=== PATIENT | female | born 1955 | race Caucasian/White ===

== ENCOUNTER 2020-04-08 10:47 | Outpatient (REF) | payer OTHER, SELFPAY ==
--- NOTE | 2020-04-08 | MM_ITS ---
EXAMINATION: BONE DENSITOMETRY CLINICAL INDICATION: Osteoporosis. COMPARISON: Previous BD dated 05/20/2017 and baseline BD dated 10/20/2013. TECHNIQUE: Using a [employer] DXA System (software version: 13.1) manufactured by [employer], dual-energy x-ray absorptiometry was performed of the lumbar spine and left hip. The images are of good technical quality. Summary results are attached. FINDINGS: AP SPINE L1-L4: Current: BMD 0.801 g/cm2, Z-score -1.8, T-score -3.2, osteoporosis, 3.8% decrease from previous, 6.3% decrease from baseline (<5% change is not significant). Prior: BMD 0.833 g/cm2. Baseline: BMD 0.855 g/cm2. LEFT FEMUR, NECK: Current: BMD 0.601 g/cm2, Z-score -1.8, T-score -3.1, osteoporosis. Prior: BMD 0.671 g/cm2. Baseline: BMD 0.736 g/cm2. LEFT FEMUR, TOTAL: Current: BMD 0.611 g/cm2, Z-score -2.1, T-score -3.2, osteoporosis, 9.9% decrease from previous, 15.4% decrease from baseline (<5% change is not significant). Prior: BMD 0.678 g/cm2. Baseline: BMD 0.722 g/cm2. IDENTIFIED RISK FACTORS: Early menopause, history of fracture (adult), osteoporosis, tobacco use (current smoker), secondary osteoporosis. HISTORY OF FRACTURE: Other fracture. MEDICATIONS: Calcium or multivitamin. Vitamin D. IMPRESSION: 1. DIAGNOSIS: Osteoporosis based on the lowest T-score value of -3.2 in the spine and total femur applying World Health Organization criteria. 2. 10-YEAR FRACTURE RISK PREDICTION, FRAX: Major osteoporotic fracture (clinical spine, forearm, hip or shoulder) 31.3%. Hip fracture 14.7%. 3. Treatment Recommendations: NOF guidelines recommend consideration for treatment in postmenopausal women and men age 50 and older presenting with the following: -A hip or vertebral (clinical or morphometric) fracture. -T-score less than or equal to -2.5 at the femoral neck or spine after appropriate evaluation to exclude secondary causes. -Low bone mass at the hip or spine and a 10-year fracture probability by FRAX of greater than or equal to 3% for hip fracture or greater than or equal to 20% for major osteoporotic fracture based on the [place] adapted WHO algorithm. 4. Other Recommendations: All treatment decisions require clinical judgment and consideration of individual patient factors, including patient preferences, comorbidities, previous drug use, risk factors not captured in the FRAX model (e.g. frailty, falls, vitamin D deficiency, increased bone turnover, interval significant decline in bone density) and possible under or overestimation of fracture risk by FRAX. Additional medical evaluation for secondary cause of low bone mineral density may be appropriate. FUTURE SCAN RECOMMENDATION: People with diagnosed cases of osteoporosis or at high risk for fracture should have regular bone mineral density tests. For patients eligible for Medicare, routine testing is allowed once every 2 years. The testing frequency can be increased to one year for patients who have rapidly progressing disease, those who are receiving or discontinuing medical therapy to restore bone mass, or have additional risk factors.
== END 2020-04-08 10:48 | disposition home or self-care (01) ==
LOC: HO.MAMMO 10:47
PROVIDERS: PCP Internal Medicine; Visit Provider Internal Medicine
DX: M81.0 Age-related osteoporosis without current pathological fracture (principal); E28.319 Asymptomatic premature menopause; F17.200 Nicotine dependence, unspecified, uncomplicated
CPT/HCPCS: 77080

== ENCOUNTER 2020-04-11 08:09 | Outpatient (REF) | payer OTHER, SELFPAY ==
[2020-04-11 09:05] LABS: MANUAL DIFF FLAG NO
[2020-04-11 09:08] LABS: Basophils Absolute Auto 0.1 X10*3/uL (0.0-0.2); Basophils Percent Auto 0.9 % (0-2); Eosinophils Absolute Auto 0.6 X10*3/uL (0.0-0.4); Eosinophils Percent Auto 5.9 % (0-4); Hematocrit 39.1 % (37-47); Hemoglobin 13.4 g/dl (12.0-16.0); Imm Gran Abs Auto 0.04 X10*3/uL (0.00-0.03); Imm Gran Pct Auto 0.4 % (0.0-0.4); Lymphocytes Absolute Auto 4.3 X10*3/uL (1.2-4.9); Lymphocytes Percent Auto 41.6 % (20-40); Mean Corpuscular HGB Conc 34.3 g/dl (31.0-35.0); Mean Corpuscular Hemoglobin 30.6 pg (27.0-33.0); Mean Corpuscular Volume 89.3 fL (80-98); Mean Platelet Volume 8.8 fL (9.4-12.3); Monocytes Absolute Auto 0.8 X10*3/uL (0.1-1.2); Monocytes Percent Auto 8.2 % (2-11); Neutrophils Absolute Auto 4.4 X10*3/uL (2.0-8.3); Platelet Count 359 X10*3/uL (160-400); Red Blood Count 4.38 X10*6/uL (4.20-5.50); Red Cell Distribution Width 12.8 % (11.0-16.0); White Blood Count 10.3 X10*3/uL (4.8-10.8)
[2020-04-11 09:39] LABS: Alanine Aminotransferase 9 U/L (0-31); Albumin Level 4.1 g/dL (3.5-5.0); Alkaline Phosphatase 70 U/L (39-117); Anion Gap 13 (12-20); Aspartate Amino Transferase 12 U/L (5-31); Bilirubin Total 0.3 mg/dL (0.0-1.0); Blood Urea Nitrogen 9 mg/dL (9-16); Calcium 9.5 mg/dL (8.4-10.2); Carbon Dioxide 27 mmol/L (22-29); Chloride 102 mmol/L (96-108); Cholesterol 229 mg/dL; Estimated Glomerular Filt Rate > 60; Glucose Fasting 103 mg/dL (60-99); HDL Cholesterol 59 mg/dL; LDL Cholesterol Calculated 144 mg/dl; Potassium 4.7 mmol/l (3.3-5.1); Sodium 137 mmol/L (135-145); Total Protein 6.5 g/dL (6.5-8.0); Triglycerides 134 mg/dL
[2020-04-11 10:25] LABS: T4 Thyroxine 5.2 ug/dL (4.5-12.0); Thyroid Stimulating Hormone 2.07 mIU/mL (0.32-4.0); Vitamin D 25-OH Total 46.5 ng/mL (>30)
[2020-04-12 19:51] LABS: Folate 7.1 ng/mL (> or = 4.0); Vitamin B12 323 pg/mL (200-900)
== END 2020-04-11 08:10 | disposition home or self-care (01) ==
LOC: HO.LAB 08:09
PROVIDERS: PCP Internal Medicine; Visit Provider Internal Medicine
DX: F41.8 Other specified anxiety disorders (principal); M81.0 Age-related osteoporosis without current pathological fracture; Z72.0 Tobacco use
CPT/HCPCS: 36415; 80053; 80061; 82306; 82607; 82746; 84436; 84443; 85025

== ENCOUNTER 2020-11-18 09:26 | Outpatient (REF) | payer OTHER, SELFPAY ==
--- NOTE | ~2020-11-18 | US_ITS ---
EXAMINATION: US ABDOMEN LIMITED CLINICAL INFORMATION: Abnormal LFTs. COMPARISON: None TECHNIQUE: Real-time imaging of the right upper quadrant abdominal viscera. FINDINGS: PANCREAS: The pancreas is partially obscured by overlying gas. LIVER: Normal. The liver is normal in size. The liver contour is normal. Parenchymal echogenicity is normal. No focal hepatic lesion. There is no intrahepatic biliary duct dilatation seen. GALLBLADDER: Normal. The gallbladder is physiologically distended without evidence of stones, sludge, polyps, wall thickening, or pericholecystic fluid. COMMON BILE DUCT: Normal in caliber measuring 0.3 cm in diameter. RIGHT KIDNEY: Normal. No hydronephrosis. No renal calculi or focal parenchymal lesions. The kidney measures 9.9 cm in maximum dimension. FREE FLUID: None. US/US abdomen limited IMPRESSION: Unremarkable limited abdomen ultrasound. The pancreas is obscured by overlying gas.
== END 2020-11-18 09:27 | disposition home or self-care (01) ==
LOC: HO.US 09:26
PROVIDERS: Visit Provider Internal Medicine
DX: R79.89 Other specified abnormal findings of blood chemistry (principal); Z86.19 Personal history of other infectious and parasitic diseases
CPT/HCPCS: 76705

== ENCOUNTER 2020-12-04 12:40 | Outpatient (REF) | payer OTHER, SELFPAY ==
--- NOTE | ~2020-12-04 | MM_ITS ---
EXAMINATION: MM SCREENING DIGITAL BREAST TOMOSYNTHESIS, BILATERAL CLINICAL INFORMATION: Screening. Asymptomatic. The lifetime risk of breast cancer based on the Tyrer-Cuzick Model is 5%. COMPARISON: Mammography: 09/04/2019, 08/17/2018, 08/04/2018, 05/20/2017 TECHNIQUE: Digital breast tomosynthesis is performed in both the craniocaudal and mediolateral oblique views along with computer-aided detection (CAD). Synthesized 2D images are generated from the tomosynthesis. FINDINGS: The breasts are heterogeneously dense, which may obscure small masses (ACR BI-RADS breast composition Category c). There is a fibronodular parenchymal pattern similar to prior studies. There is no interval mass or architectural abnormality or abnormal calcifications. Small nodular density 12:00 right breast is stable and consistent with dermal lesion as confirmed with skin marker on exam 08/17/2018. The axilla are unremarkable. There are no significant changes. MM/MM tomosynthesis screening BI IMPRESSION: No mammographic evidence of malignancy. ASSESSMENT: BI-RADS 2: Benign RECOMMENDATION: Routine annual mammography screening. This patient's information was entered into a reminder system with a target due date for their next mammogram.
== END 2020-12-04 12:41 | disposition home or self-care (01) ==
LOC: HO.MAMMO 12:40
PROVIDERS: Visit Provider Internal Medicine
DX: Z12.31 Encounter for screening mammogram for malignant neoplasm of breast (principal)
CPT/HCPCS: 77063; 77067

== ENCOUNTER 2020-12-23 10:50 | Outpatient (REF) | payer OTHER, SELFPAY ==
--- NOTE | ~2020-12-23 | CT_ITS ---
EXAMINATION: CT CHEST SCREENING CLINICAL INFORMATION: Nicotine dependence. COMPARISON: None. TECHNIQUE: Multidetector volumetric CT imaging of the chest is performed without contrast using low dose technique. Additional 2D coronal and sagittal reformatted images and axial 3D maximum intensity projection (MIP) images are generated on the CT workstation. This CT examination was performed using dose optimization techniques as appropriate, variously including the following: *Automated exposure control *Adjustment of mA and/or kV according to patient size (this includes techniques or standardized protocols for targeted exams where dose is matched to indication/reason for exam; i.e. extremities or head) *Use of iterative reconstruction technique DLP: 45 mGy-cm. FINDINGS: LUNGS: The lungs are well expanded and clear of acute pneumonic process. There is a 3 mm nodule right lower lobe image 247/6. There is mild focal thickening right minor fissure axial image 248/6, likely secondary to a prominent vascular structure better visualized on sagittal reconstructed images 85/8. There is a 4 mm subpleural nodule right lower lobe axial image 316/6 and a 6 mm nodule left lower lobe lateral basal segment image 390/6. There is no additional pulmonary nodule, mass or ground-glass density. MEDIASTINUM: The heart size is normal. The great vessels are normal caliber. There are coronary artery calcifications present. No pericardial effusion seen. Central trachea and the bronchi appear widely patent except for stranding in the trachea, axial image 16/4. There are small shotty lymph nodes in the mediastinum. Thyroid lobes are symmetrical and normal. PLEURA: There is no pleural effusion. No pleural mass or thickening. AXILLA: There is a 1.2 cm left axillary lymph node. The chest wall appears unremarkable. UPPER ABDOMEN: Visualized liver, spleen, pancreas and bilateral adrenal glands are unremarkable. OSSEOUS STRUCTURES: No lytic or sclerotic process seen. CT/CT lung screening IMPRESSION: 6 mm and less pulmonary nodules as described above ASSESSMENT: Lung-RADS category 2: Benign. RECOMMENDATION: Low-dose annual CT chest.
== END 2020-12-23 10:51 | disposition home or self-care (01) ==
LOC: HO.CT 10:50
PROVIDERS: PCP Internal Medicine; Visit Provider Physician Assistant Medical
DX: Z12.2 Encounter for screening for malignant neoplasm of respiratory organs (principal); Z87.891 Personal history of nicotine dependence
CPT/HCPCS: 71271

== ENCOUNTER 2021-04-11 08:21 | Outpatient (REF) | payer OTHER, SELFPAY ==
[2021-04-11 10:12] LABS: MANUAL DIFF FLAG NO
[2021-04-11 10:18] LABS: Basophils Absolute Auto 0.1 X10*3/uL (0.0-0.2); Basophils Percent Auto 1.5 % (0-2); Eosinophils Absolute Auto 0.4 X10*3/uL (0.0-0.4); Eosinophils Percent Auto 4.6 % (0-4); Hematocrit 41.8 % (37-47); Hemoglobin 14.5 g/dl (12.0-16.0); Imm Gran Abs Auto 0.02 X10*3/uL (0.00-0.03); Imm Gran Pct Auto 0.2 % (0.0-0.4); Lymphocytes Absolute Auto 3.9 X10*3/uL (1.2-4.9); Mean Corpuscular HGB Conc 34.7 g/dl (31.0-35.0); Mean Corpuscular Hemoglobin 30.5 pg (27.0-33.0); Mean Corpuscular Volume 87.8 fL (80-98); Mean Platelet Volume 9.4 fL (9.4-12.3); Monocytes Absolute Auto 0.7 X10*3/uL (0.1-1.2); Monocytes Percent Auto 8.6 % (2-11); Neutrophils Absolute Auto 3.2 X10*3/uL (2.0-8.3); Neutrophils Percent Auto 38.1 % (45-73); Platelet Count 301 X10*3/uL (160-400); Red Blood Count 4.76 X10*6/uL (4.20-5.50); Red Cell Distribution Width 12.3 % (11.0-16.0); White Blood Count 8.3 X10*3/uL (4.8-10.8)
[2021-04-11 10:36] LABS: Alanine Aminotransferase 8 U/L (0-31); Albumin Level 4.2 g/dL (3.5-5.0); Alkaline Phosphatase 86 U/L (39-117); Anion Gap 12 (12-20); Aspartate Amino Transferase 15 U/L (5-31); Bilirubin Total 0.5 mg/dL (0.0-1.0); Blood Urea Nitrogen 15 mg/dL (9-16); Calcium 9.8 mg/dL (8.4-10.2); Carbon Dioxide 27 mmol/L (22-29); Chloride 101 mmol/L (96-108); Cholesterol 272 mg/dL; Estimated Glomerular Filt Rate 56; Glucose Random 101 mg/dL (60-115); HDL Cholesterol 68 mg/dL; LDL Cholesterol Calculated 184 mg/dl; Potassium 4.5 mmol/L (3.3-5.1); Sodium 135 mmol/L (135-145); Triglycerides 101 mg/dL
[2021-04-11 10:38] LABS: Estimated Average Glucose 105 mg/dL; Hemoglobin A1c % 5.3 %
[2021-04-11 10:59] LABS: Free T4 (Free Thyroxine) 0.85 ng/dL (0.71-1.85); Thyroid Stimulating Hormone 2.46 uIU/mL (0.32-4.0); Vitamin D 25-OH Total 42.1 ng/mL (>30)
[2021-04-11 11:14] LABS: Folate 8.8 ng/mL (> or = 4.0); Vitamin B12 293 pg/mL (200-900)
== END 2021-04-11 08:22 | disposition home or self-care (01) ==
LOC: HO.10HDL 08:21
PROVIDERS: Visit Provider Internal Medicine
DX: R73.02 Impaired glucose tolerance (oral) (principal); E78.00 Pure hypercholesterolemia, unspecified; M81.0 Age-related osteoporosis without current pathological fracture; Z86.19 Personal history of other infectious and parasitic diseases
CPT/HCPCS: 36415; 80053; 80061; 82306; 82378; 82607; 82746; 83036; 84439; 84443; 85025

== ENCOUNTER 2021-12-08 08:47 | Outpatient (REF) | payer OTHER, SELFPAY ==
--- NOTE | ~2021-12-08 | MM_ITS ---
EXAMINATION: MM SCREENING DIGITAL BREAST TOMOSYNTHESIS, BILATERAL CLINICAL INFORMATION: Screening. Asymptomatic. The lifetime risk of breast cancer based on the Tyrer-Cuzick Model is 5.2%. COMPARISON: Mammography: December 04, 2020 and studies dating back to October 20, 2013 TECHNIQUE: Digital breast tomosynthesis is performed in both the craniocaudal and mediolateral oblique views along with computer-aided detection (CAD). Synthesized 2D images are generated from the tomosynthesis. FINDINGS: The breasts are heterogeneously dense, which may obscure small masses (ACR BI-RADS breast composition Category c). There are no significant masses, abnormal calcifications, or other abnormalities. MM/MM tomosynthesis screening BI IMPRESSION: There are no significant changes from prior study. ASSESSMENT: BI-RADS 1: Negative RECOMMENDATION: Routine annual mammography screening. This patient's information was entered into a reminder system with a target due date for their next mammogram.
--- NOTE | ~2021-12-08 | XR_ITS ---
EXAMINATION: BILATERAL ANKLE X-RAY CLINICAL INFORMATION: Pain COMPARISON: None TECHNIQUE: 3 views of each ankle FINDINGS: Bone alignment is normal. No fracture or dislocation is seen. The ankle mortise is normal. Soft tissues are normal. XR/XR ankle RT 2V IMPRESSION: Normal bilateral ankles.
--- NOTE | ~2021-12-08 | XR_ITS ---
EXAMINATION: BILATERAL ANKLE X-RAY CLINICAL INFORMATION: Pain COMPARISON: None TECHNIQUE: 3 views of each ankle FINDINGS: Bone alignment is normal. No fracture or dislocation is seen. The ankle mortise is normal. Soft tissues are normal. XR/XR ankle LT 2V IMPRESSION: Normal bilateral ankles.
[2021-12-08 10:32] LABS: MANUAL DIFF FLAG NO
[2021-12-08 10:36] LABS: Basophils Absolute Auto 0.1 X10*3/uL (0.0-0.2); Basophils Percent Auto 0.7 % (0-2); Eosinophils Absolute Auto 0.5 X10*3/uL (0.0-0.4); Eosinophils Percent Auto 4.6 % (0-4); Hematocrit 40.6 % (37.0-47.0); Hemoglobin 13.9 g/dl (12.0-16.0); Imm Gran Abs Auto 0.03 X10*3/uL (0.00-0.03); Imm Gran Pct Auto 0.3 % (0.0-0.4); Lymphocytes Absolute Auto 2.7 X10*3/uL (1.2-4.9); Lymphocytes Percent Auto 27.3 % (20-40); Mean Corpuscular HGB Conc 34.2 g/dl (31.0-35.0); Mean Corpuscular Hemoglobin 30.9 pg (27.0-33.0); Mean Corpuscular Volume 90.2 fL (80.0-98.0); Mean Platelet Volume 9.5 fL (9.4-12.3); Monocytes Absolute Auto 0.9 X10*3/uL (0.1-1.2); Monocytes Percent Auto 9.1 % (2-11); Neutrophils Absolute Auto 5.7 x10*3/uL (2.0-8.3); Platelet Count 341 X10*3/uL (160-400); Red Cell Distribution Width 12.8 % (11.0-16.0); White Blood Count 9.8 X10*3/uL (4.8-10.8)
[2021-12-08 10:51] LABS: Cholesterol 206 mg/dL; HDL Cholesterol 66 mg/dL; LDL Cholesterol Calculated 118 mg/dl; Triglycerides 113 mg/dL
[2021-12-08 10:56] LABS: Estimated Average Glucose 108 mg/dL; Hemoglobin A1c % 5.4 %
== END 2021-12-08 08:48 | disposition home or self-care (01) ==
LOC: HO.MAMMO 08:47
PROVIDERS: PCP Internal Medicine; Visit Provider Internal Medicine
DX: Z12.31 Encounter for screening mammogram for malignant neoplasm of breast (principal); E78.00 Pure hypercholesterolemia, unspecified; R73.02 Impaired glucose tolerance (oral); M25.572 Pain in left ankle and joints of left foot; M25.571 Pain in right ankle and joints of right foot
CPT/HCPCS: 36415; 73600; 77063; 77067; 80061; 83036; 85025

== ENCOUNTER 2022-03-12 10:49 | Outpatient (REF) | payer OTHER, SELFPAY ==
--- NOTE | 2022-03-12 13:21 | PFT_ITS ---
FLOWS: FEV1 83% of predicted at 2.08 L. FVC 99% predicted at 3.5 L. FEV1 to FVC ratio of 0.64. No bronchodilator response. LUNG VOLUMES: Total lung capacity 103% of predicted at 5.39 L. Residual volume 101% of predicted at 2.17 L. Slow vital capacity 105% of predicted at 3.22 L. Expiratory reserve volume 101% of predicted at 0.83 L. Diffusion capacity is moderately decreased. IMPRESSION: Mild obstructive ventilatory defect. No bronchodilator response. Decreased diffusion capacity suggests emphysema. Oseas Núñez MD AP/MODL / [id number]
== END 2022-03-12 10:50 | disposition home or self-care (01) ==
LOC: HO.RESP 10:49
PROVIDERS: PCP Internal Medicine; Visit Provider Internal Medicine
DX: R06.02 Shortness of breath (principal)
CPT/HCPCS: 94060; 94727; 94729

== ENCOUNTER 2022-08-17 08:27 | Outpatient (REF) | payer MEDICARE, MEDICAID, SELFPAY ==
--- NOTE | ~2022-08-17 | CT_ITS ---
EXAMINATION: CT CHEST SCREENING CLINICAL INFORMATION: 40 pack year history. Current smoker. COMPARISON: Previous chest CT December 2020 TECHNIQUE: Multidetector volumetric CT imaging of the chest is performed without contrast using low dose technique. Additional 2D coronal and sagittal reformatted images and axial 3D maximum intensity projection (MIP) images are generated on the CT workstation. This CT examination was performed using dose optimization techniques as appropriate, variously including the following: *Automated exposure control *Adjustment of mA and/or kV according to patient size (this includes techniques or standardized protocols for targeted exams where dose is matched to indication/reason for exam; i.e. extremities or head) *Use of iterative reconstruction technique DLP: 49 mGy-cm FINDINGS: LUNGS: There is evidence of emphysema. There are small stable bilateral pulmonary nodules. Largest pulmonary nodules measure 6 mm in the peripheral or subpleural right lower lobe axial image 339 and 7 mm in the peripheral or subpleural left lower lobe axial image 364 series 5. No new pulmonary nodule. No endobronchial or endotracheal lesion. MEDIASTINUM: Small left thyroid nodule. No imaging follow-up is indicated. Similar to previous exam. Mediastinum is otherwise normal. CORONARY ARTERY CALCIFICATION: Mild PLEURA: There is no pleural effusion. No pleural mass or thickening. AXILLA: No lymphadenopathy. UPPER ABDOMEN: Unremarkable OSSEOUS STRUCTURES: Mild degenerative changes of the spine. CT/CT lung screening IMPRESSION: Mild emphysema. Stable small bilateral pulmonary nodules. Mild coronary artery calcification. ASSESSMENT: Lung-RADS category 2: Benign RECOMMENDATION: Annual low-dose chest CT follow-up in one year recommended.
== END 2022-08-17 08:28 | disposition home or self-care (01) ==
LOC: HO.CT 08:27
PROVIDERS: PCP Internal Medicine; Visit Provider Physician Assistant Medical
DX: Z12.2 Encounter for screening for malignant neoplasm of respiratory organs (principal); F17.210 Nicotine dependence, cigarettes, uncomplicated
CPT/HCPCS: 71271

== ENCOUNTER 2022-10-07 12:25 | Outpatient (REF) | payer MEDICARE, MEDICAID, SELFPAY ==
[2022-10-08 03:17] LABS: CT PCR NOT DETECTED (Not Detect.); NG PCR NOT DETECTED (Not Detect.)
[2022-10-08 10:01] LABS: BV Int Neg Control Negative (Negative); BV Int Pos Control Positive (Positive)
== END 2022-10-07 12:26 | disposition home or self-care (01) ==
LOC: HO.LAB 12:25
PROVIDERS: Visit Provider Internal Medicine
DX: Z12.4 Encounter for screening for malignant neoplasm of cervix (principal); Z11.51 Encounter for screening for human papillomavirus (HPV); Z20.2 Contact with and (suspected) exposure to infections with a predominantly sexual mode of transmission
CPT/HCPCS: 0353U; 87480; 87510; 87624; 87660; 88142

== ENCOUNTER 2022-10-07 12:25 | Outpatient (REF) | payer MEDICARE, MEDICAID, SELFPAY ==
[2022-10-10 08:54] LABS: HPV mRNA E6/E7 rflx Not Detected (Not Detected)
== END 2022-10-07 12:26 | disposition home or self-care (01) ==
LOC: HO.LNP 12:25
PROVIDERS: Visit Provider Internal Medicine
DX: Z13.89 Encounter for screening for other disorder (principal)
CPT/HCPCS: 87624; 88142

== ENCOUNTER 2022-12-29 10:41 | Outpatient (REF) | payer MEDICARE, MEDICAID, SELFPAY ==
--- NOTE | ~2022-12-29 | MM_ITS ---
EXAMINATION: MM SCREENING DIGITAL BREAST TOMOSYNTHESIS, BILATERAL CLINICAL INFORMATION: Screening. Asymptomatic. The lifetime risk of breast cancer based on the Tyrer-Cuzick Model is 5%. COMPARISON: Prior mammography exams including most recent 12/08/2021. TECHNIQUE: Digital breast tomosynthesis is performed in both the craniocaudal and mediolateral oblique views along with computer-aided detection (CAD). Synthesized 2D images are generated from the tomosynthesis. FINDINGS: The breasts are heterogeneously dense, which may obscure small masses (ACR BI-RADS breast composition Category c). There are no significant masses, abnormal calcifications, or other abnormalities. Parenchymal pattern is similar to prior studies. There is no developing density or architectural abnormality. The axilla and skin contours are unremarkable. No significant changes. MM/MM tomosynthesis screening BI IMPRESSION: No mammographic evidence of malignancy. ASSESSMENT: BI-RADS 1: Negative RECOMMENDATION: Routine annual mammography screening. This patient's information was entered into a reminder system with a target due date for their next mammogram.
== END 2022-12-29 10:42 | disposition home or self-care (01) ==
LOC: HO.MAMMO 10:41
PROVIDERS: PCP Internal Medicine; Visit Provider Internal Medicine
DX: Z12.31 Encounter for screening mammogram for malignant neoplasm of breast (principal)
CPT/HCPCS: 77063; 77067

== ENCOUNTER 2023-02-25 08:29 | Outpatient (REF) | payer MEDICARE, MEDICAID, SELFPAY ==
[2023-02-25 10:43] LABS: Basophils Absolute Auto 0.1 X10*3/uL (0.0-0.2); Basophils Percent Auto 0.9 % (0-2); Eosinophils Absolute Auto 0.4 X10*3/uL (0.0-0.4); Eosinophils Percent Auto 3.7 % (0-4); Hematocrit 42.3 % (37.0-47.0); Hemoglobin 14.2 g/dl (12.0-16.0); Imm Gran Abs Auto 0.05 X10*3/uL (0.00-0.03); Imm Gran Pct Auto 0.5 % (0.0-0.4); Lymphocytes Absolute Auto 5.1 X10*3/uL (1.2-4.9); Lymphocytes Percent Auto 53.4 % (20-40); MANUAL DIFF FLAG SCAN; Mean Corpuscular HGB Conc 33.6 g/dl (31.0-35.0); Mean Corpuscular Volume 89.2 fL (80.0-98.0); Mean Platelet Volume 9.7 fL (9.4-12.3); Monocytes Absolute Auto 0.7 X10*3/uL (0.1-1.2); Monocytes Percent Auto 7.7 % (2-11); Neutrophils Absolute Auto 3.2 x10*3/uL (2.0-8.3); Neutrophils Percent Auto 33.8 % (45-73); Platelet Count 326 X10*3/uL (160-400); Red Blood Count 4.74 X10*6/uL (4.20-5.50); Red Cell Distribution Width 12.3 % (11.0-16.0); SCAN SMEAR FLAG 1; White Blood Count 9.5 X10*3/uL (4.8-10.8)
[2023-02-25 10:59] LABS: Estimated Average Glucose 105 mg/dL; Hemoglobin A1c % 5.3 % (<6.0)
[2023-02-25 11:04] LABS: Alanine Aminotransferase 9 U/L (0-31); Alkaline Phosphatase 65 U/L (39-117); Anion Gap 11 (12-20); Aspartate Amino Transferase 15 U/L (5-31); Bilirubin Total 0.3 mg/dL (0.0-1.0); Blood Urea Nitrogen 10 mg/dL (9-16); Calcium 9.9 mg/dL (8.4-10.2); Carbon Dioxide 26 mmol/L (22-29); Chloride 106 mmol/L (96-108); Cholesterol 210 mg/dL (<200); Estimated Glomerular Filt Rate > 60; Glucose Random 105 mg/dL (60-115); HDL Cholesterol 72 mg/dL (>40); LDL Cholesterol Calculated 122 mg/dL (<100); Sodium 139 mmol/L (135-145); Total Protein 7.2 g/dL (6.5-8.0); Triglycerides 81 mg/dL (<150)
[2023-02-25 11:07] LABS: SLIDE REVIEW VERIFIED
[2023-02-25 11:24] LABS: Free T4 (Free Thyroxine) 0.76 ng/dL (0.71-1.85); Thyroid Stimulating Hormone 3.73 uIU/mL (0.32-4.0); Vitamin D 25-OH Total 44.4 ng/mL (>30)
[2023-02-25 11:32] LABS: Vitamin B12 381 pg/mL (200-900)
== END 2023-02-25 08:30 | disposition home or self-care (01) ==
LOC: HO.10HDL 08:29
PROVIDERS: Visit Provider Internal Medicine
DX: R73.02 Impaired glucose tolerance (oral) (principal); E78.00 Pure hypercholesterolemia, unspecified
CPT/HCPCS: 36415; 80053; 80061; 82306; 82607; 82746; 83036; 84439; 84443; 85025

== ENCOUNTER 2023-04-23 15:20 | Outpatient (AMB) | payer MEDICARE, MEDICAID, SELFPAY ==
[2023-04-23 15:26] VITALS: BP 142/80; PULSE 88; RESP 17; O2SAT 96; BMI 28.8
--- NOTE | 2023-04-23 15:26 | MHC.PC.OV ---
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 Required: No Accompanied by: Self / Same As Patient Allergies No Known Allergies [No Known Allergies*] Allergy (Verified 04/23/23 15:32) Medication List - Last Reconciled 04/23/23 by Steph Velasquez MD acyclovir 5% (Zovirax) 1 appl topical 6XD 7 days albuterol sulfate 90 mcg/actuation 2 puffs inhalation Q6H PRN alendronate (Fosamax) 70 mg PO QWEEK 30 days baclofen 10 mg PO BID 90 days budesonide-formoterol 160-4.5 mcg/actuation (Symbicort) 2 puffs inhalation Q12H bupropion HCl Take 2 tablets in the morning and 1 tablet in the afternoon PO; 90 days clonidine HCl 0.2 mg PO TID PRN 90 days lactulose 20 grams (30 mL) PO BID quetiapine (Seroquel) 200 mg (2 x 100 mg) PO BEDTIME 90 days sennosides-docusate sodium 8.6-50 mg (Senna with Docusate Sodium) 2 tab-caps (2 x 8.6-50 mg) PO BEDTIME simvastatin 5 mg PO BEDTIME 30 days umeclidinium 62.5 mcg/actuation (Incruse Ellipta) 1 inh inhalation DAILY Tobacco use date assessed: 10/07/22 Fall risk assessment: No Falls in past year Last assessed Fall Risk: 04/23/23 Dental Screening Dental Screen Date: 04/23/23 Did you have a dental visit in the last 12 months?: Yes Did you have a dental problem in the last 6 months where you did not have access to dental care?: No Was dental information given to patient?: Patient has dentist HPI 3 month f/u HPI Details 67-year-old overweight female smoker with COPD osteoporosis impaired glucose tolerance hypercholesterolemia and generalized anxiety disorder last seen for physical in October 2022. Patient is here for follow-up. Up-to-date with mammogram and colonoscopy 4 a day of smoking. has a redness on the R breast . [facility] Medical History (Updated 10/20/23 @ 16:20 by Steph Velasquez MD) Positive TB test Personal history of nicotine dependence Annual physical exam Herniation of intervertebral disc between L5 and S1 Trigeminal neuralgia Hemiplegic migraine Hypercholesterolemia Anxiety and depression Alcohol abuse History of hepatitis C Surgical History History of hemorrhoidectomy Family History Father Medical history unknown Mother Chronic mental illness Social History Housing: House Alcohol intake: never Patient Tobacco Use Status: Current everyday Tobacco user Tobacco use type: Cigarette Cigarettes Per Day: 3 Years Smoked: 42 (onset 22) e-Cigarette/Vaping Use: Never Used Second Hand Smoke Exposure: Yes Advance Directives Date on File: 04/08/20 service: No Current occupational status: retired Cognitive needs: No Hearing needs: No Vision needs: Yes Questionnaire Thrive Questionnaire Date Thrive assessed: 12/29/21 KVNG-7 AMB Questionnaire KVNG-7 Date KVNG - 7 assessed: 10/07/22 Source: Developed by Drs. Abner Harrison, Kasia Benitez, Dejon Stevenson and colleagues, with an educational josephine from [employer]. Physical exam (Primary Care) Vital Signs: Last Vital Signs Pulse 88 04/23/23 15:26 Resp 17 04/23/23 15:26 BP 142/80 H 04/23/23 15:26 Pulse Ox 96 04/23/23 15:26 Oxygen Delivery Method Room Air 04/23/23 15:26 BMI result Body Mass Index 28.8 Tobacco/Smoking Status: Tobacco use Status Tobacco use date assessed 10/07/22 04/23/23 15:33 Patient Tobacco Use Status Current everyday Tobacco 04/23/23 15:33 Tobacco use type Cigarette 04/23/23 15:33 e-Cigarette/Vaping Use Never Used 04/23/23 15:33 Thrive Assessment: Date of Thrive Assessment Date Thrive assessed 12/29/21 04/23/23 15:33 Const General: alert; No acute distress Eyes Conjunctivae: conjunctivae normal Resp Auscultation: clear to auscultation bilaterally Cardio Rate: regular rate Rhythm: regular rhythm GI Inspection: Yes normal to inspection Extrem General: Yes normal to inspection and No edema Assessment and Plan Assessment & Plan (1) Tobacco abuse: Code(s): Z72.0 - Tobacco use Plan: Patient is strongly advised to stop smoking (2) Emphysema lung: Comment: PFT March 2022 Code(s): J43.9 - Emphysema, unspecified Plan: Continue with inhaler as needed (3) Osteoporosis: Comment: April 2020 Code(s): M81.0 - Age-related osteoporosis without current pathological fracture Plan: Patient reminded about bone density (4) Impaired glucose tolerance: Code(s): R73.02 - Impaired glucose tolerance (oral) Plan: Decrease the amount of carbohydrate intake, pasta, bread, rice and potatoes are all sugar and that is aside from all the sweet stuff, remember that fruits are good but they are Sweet also. (5) Hypercholesterolemia: Code(s): E78.00 - Pure hypercholesterolemia, unspecified Plan: Avoid fried foods, chicken skin, eggs, butter margarine, pastries and meat. Be it pork or beef they have a lot of cholesterol (6) Blood pressure elevated without history of HTN: Code(s): R03.0 - Elevated blood-pressure reading, without diagnosis of hypertension Plan: monitor BP for now Orders: Orders XR DEXA axial skeleton Today M81.0 - Age-related osteoporosis without current pathological fracture Medications: New umeclidinium 62.5 mcg/actuation (Incruse Ellipta) 1 inh inhalation DAILY 30 ea 2RF J43.9 - Emphysema, unspecified Coding Level of Care Code Est Pt Level 4 (92123) Diagnoses Tobacco abuse Z72.0 Emphysema lung J43.9 Osteoporosis M81.0 Impaired glucose tolerance R73.02 Hypercholesterolemia E78.00 Blood pressure elevated without history of HTN R03.0
== END 2023-04-23 16:22 | disposition home or self-care (01) ==
PROVIDERS: PCP Internal Medicine; Visit Provider Internal Medicine
DX: Z72.0 Tobacco use (principal); J43.9 Emphysema, unspecified; M81.0 Age-related osteoporosis without current pathological fracture; R73.02 Impaired glucose tolerance (oral); E78.00 Pure hypercholesterolemia, unspecified; R03.0 Elevated blood-pressure reading, without diagnosis of hypertension
CPT/HCPCS: 99214

== ENCOUNTER 2023-05-13 08:50 | Outpatient (REF) | payer MEDICARE, MEDICAID, SELFPAY ==
--- NOTE | ~2023-05-13 | MM_ITS ---
EXAMINATION: BONE DENSITOMETRY CLINICAL INDICATION: Osteoporosis. COMPARISON: Previous BD dated 04/08/2020 and baseline BD dated 10/20/2013. TECHNIQUE: Using a [employer] DXA System (software version: 13.1) manufactured by [employer], dual-energy x-ray absorptiometry was performed of the lumbar spine and left hip. The images are of good technical quality. Summary results are attached. FINDINGS: LEFT FEMUR, NECK: Current: BMD 0.688 g/cm2, Z-score -1.2, T-score -2.5, osteoporosis. Prior: BMD 0.601 g/cm2. Baseline: BMD 0.736 g/cm2. LEFT FEMUR, TOTAL: Current: BMD 0.673 g/cm2, Z-score -1.7, T-score -2.7, osteoporosis, 10.1% increase from previous, 6.8% decrease from baseline (<5% change is not significant). Prior: BMD 0.611 g/cm2. Baseline: BMD 0.722 g/cm2. AP SPINE L1-L4: Current: BMD 0.777 g/cm2, Z-score -2.1, T-score -3.4, osteoporosis, 3.0% decrease from previous, 9.1% decrease from baseline (<5% change is not significant). Prior: BMD 0.801 g/cm2. Baseline: BMD 0.855 g/cm2. IDENTIFIED RISK FACTORS: Early menopause, history of fracture (adult), osteoporosis, secondary osteoporosis (chronic liver disease), tobacco use (current smoker). HISTORY OF FRACTURE: Other. MEDICATIONS: Calcium/multivitamin, fluoride, bisphosphonate. MM/XR DEXA axial skeleton IMPRESSION: 1. DIAGNOSIS: Osteoporosis based on the lowest T-score value of -3.4 in the lumbar spine applying World Health Organization criteria. 2. 10-YEAR FRACTURE RISK PREDICTION, FRAX: According to the guidelines, FRAX calculation should only be performed on patients in the osteopenia bone density category. Therefore, FRAX was not performed on this patient. 3. Treatment Recommendations: NOF guidelines recommend consideration for treatment in postmenopausal women and men age 50 and older presenting with the following: -A hip or vertebral (clinical or morphometric) fracture. -T-score less than or equal to -2.5 at the femoral neck or spine after appropriate evaluation to exclude secondary causes. -Low bone mass at the hip or spine and a 10-year fracture probability by FRAX of greater than or equal to 3% for hip fracture or greater than or equal to 20% for major osteoporotic fracture based on the [place] adapted WHO algorithm. 4. Other Recommendations: All treatment decisions require clinical judgment and consideration of individual patient factors, including patient preferences, comorbidities, previous drug use, risk factors not captured in the FRAX model (e.g. frailty, falls, vitamin D deficiency, increased bone turnover, interval significant decline in bone density) and possible under or overestimation of fracture risk by FRAX. Additional medical evaluation for secondary cause of low bone mineral density may be appropriate. FUTURE SCAN RECOMMENDATION: People with diagnosed cases of osteoporosis or at high risk for fracture should have regular bone mineral density tests. For patients eligible for Medicare, routine testing is allowed once every 2 years. The testing frequency can be increased to one year for patients who have rapidly progressing disease, those who are receiving or discontinuing medical therapy to restore bone mass, or have additional risk factors.
== END 2023-05-13 08:51 | disposition home or self-care (01) ==
LOC: HO.MAMMO 08:50
PROVIDERS: PCP Internal Medicine; Visit Provider Internal Medicine
DX: Z13.820 Encounter for screening for osteoporosis (principal); Z78.0 Asymptomatic menopausal state; M81.0 Age-related osteoporosis without current pathological fracture
CPT/HCPCS: 77080

== ENCOUNTER 2023-08-05 09:08 | Outpatient (AMB) | payer MEDICARE, MEDICAID, SELFPAY ==
[2023-08-05 09:14] VITALS: BP 152/80; PULSE 88; O2SAT 98; BMI 29.6
--- NOTE | 2023-08-05 09:14 | MHC.PC.OV ---
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 Allergies No Known Allergies [No Known Allergies*] Allergy (Verified 08/05/23 09:23) Tobacco use date assessed: 08/05/23 Fall risk assessment: No Falls in past year Last assessed Fall Risk: 08/05/23 Dental Screening Dental Screen Date: 08/05/23 Did you have a dental visit in the last 12 months?: No Did you have a dental problem in the last 6 months where you did not have access to dental care?: No Was dental information given to patient?: Patient has dentist HPI blood pressure elevation, COPD HPI Details 67 year old Overweight female smoker with COPD osteoporosis impaired glucose tolerance hypercholesterolemia last seen in April 2023. Patient's colonoscopy is due this year up-to-date with mammogram up-to-date with bone density. [facility] Medical History (Updated 08/05/23 @ 10:03 by Steph Velasquez MD) Positive TB test Personal history of nicotine dependence Annual physical exam Herniation of intervertebral disc between L5 and S1 Trigeminal neuralgia Hemiplegic migraine Hypercholesterolemia Anxiety and depression Alcohol abuse History of hepatitis C Surgical History History of hemorrhoidectomy Family History Father Medical history unknown Mother Chronic mental illness Social History Housing: House Alcohol intake: never Patient Tobacco Use Status: Current everyday Tobacco user Tobacco use type: Cigarette Cigarettes Per Day: 3 Years Smoked: 42 (onset 22) e-Cigarette/Vaping Use: Never Used Second Hand Smoke Exposure: Yes Advance Directives Date on File: 04/08/20 service: No Current occupational status: retired Cognitive needs: No Hearing needs: No Vision needs: Yes Questionnaire PHQ-9 Over the last 2 weeks, how often have you been bothered by any of the following problems? 1. Little interest or pleasure in doing things: not at all 2. Feeling down, depressed, or hopeless: not at all 3. Trouble falling or staying asleep, or sleeping too much: not at all 4. Feeling tired or having little energy: not at all 5. Poor appetite or overeating: not at all 6. Feeling bad about yourself - or that you are a failure or have let yourself or your family down: not at all 7. Trouble concentrating on things, such as reading the newspaper or watching television: not at all 8. Moving or speaking so slowly that other people could have noticed. Or the opposite - being so fidgety or restless that you have been moving around a lot more than usual: not at all 9. Thoughts that you would be better off or of hurting yourself in some way: not at all Total score: 0 Depression Screening Interpretation: Negative Depression Screening Done: Yes Source: Developed by Drs. Abner Harrison, Kasia Benitez, Dejon Stevenson and colleagues, with an educational josephine from [email or web address]. Thrive Questionnaire Date Thrive assessed: 12/29/21 AUDIT C Alcohol Use Questionnaire (AUDIT-C) 1. How often do you have a drink containing alcohol?: Monthly or less 2. How many drinks containing alcohol do you have on a typical day when you are drinking?: 1 or 2 3. How often do you have six or more drinks on one occasion?: Never Total Score: 1 KVNG-7 AMB Questionnaire KVNG-7 Date KVNG - 7 assessed: 08/05/23 Source: Developed by Drs. Abner Harrison, Kasia Benitez, Dejon Stevenson and colleagues, with an educational josephine from [email or web address]. Physical exam (Primary Care) Vital Signs: Last Vital Signs Pulse 88 08/05/23 09:14 BP 152/80 H 08/05/23 09:14 Pulse Ox 98 08/05/23 09:14 Oxygen Delivery Method Room Air 08/05/23 09:14 BMI result Body Mass Index 29.6 Tobacco/Smoking Status: Tobacco use Status Tobacco use date assessed 08/05/23 08/05/23 09:17 Patient Tobacco Use Status Current everyday Tobacco 08/05/23 09:17 Tobacco use type Cigarette 08/05/23 09:17 e-Cigarette/Vaping Use Never Used 02/01/24 09:17 PHQ-9: PHQ-9 Score PHQ-9: Total score 0 08/05/23 09:58 Depression Screening Interpretation: Negative Thrive Assessment: Date of Thrive Assessment Date Thrive assessed 12/29/21 08/05/23 09:17 Const General: alert; No acute distress Eyes Conjunctivae: conjunctivae normal Resp Auscultation: clear to auscultation bilaterally Cardio Rate: regular rate Rhythm: regular rhythm GI Inspection: Yes normal to inspection Extrem General: Yes normal to inspection and No edema Assessment and Plan Assessment & Plan (1) Blood pressure elevated without history of HTN: Code(s): R03.0 - Elevated blood-pressure reading, without diagnosis of hypertension Plan: Continue to monitor blood pressure. high today, advised to monitor and record (2) Emphysema lung: Comment: PFT March 2022 Code(s): J43.9 - Emphysema, unspecified Plan: Stop smoking! Continue with the inhaler patient is on Symbicort and albuterol and incruse (3) Tobacco abuse: Code(s): Z72.0 - Tobacco use Plan: Patient is strongly advised to stop smoking trying to stop (4) Osteoporosis: Comment: April 2020, May 2023 Code(s): M81.0 - Age-related osteoporosis without current pathological fracture Plan: Patient on alendronate and improvement in the spine. (5) Impaired glucose tolerance: Code(s): R73.02 - Impaired glucose tolerance (oral) Plan: Decrease the amount of carbohydrate intake, pasta, bread, rice and potatoes are all sugar and that is aside from all the sweet stuff, remember that fruits are good but they are Sweet also. (6) Tubular adenoma of colon: Code(s): D12.6 - Benign neoplasm of colon, unspecified Plan: reminded Coding Level of Care Code Est Pt Level 4 (81009) Diagnoses Blood pressure elevated without history of HTN R03.0 Emphysema lung J43.9 Tobacco abuse Z72.0 Osteoporosis M81.0 Impaired glucose tolerance R73.02 Tubular adenoma of colon D12.6
== END 2023-08-05 10:08 | disposition home or self-care (01) ==
PROVIDERS: PCP Internal Medicine; Visit Provider Internal Medicine
DX: R03.0 Elevated blood-pressure reading, without diagnosis of hypertension (principal); J43.9 Emphysema, unspecified; Z72.0 Tobacco use; M81.0 Age-related osteoporosis without current pathological fracture; R73.02 Impaired glucose tolerance (oral); D12.6 Benign neoplasm of colon, unspecified
CPT/HCPCS: 99214

== ENCOUNTER 2023-09-17 18:04 | Emergency (ER) | payer MEDICARE, MEDICAID, SELFPAY ==
--- NOTE | ~2023-09-17 | XR_ITS ---
EXAMINATION: XR CHEST CLINICAL INFORMATION: Weakness. COMPARISON: CT lung screening 06/16/2023. TECHNIQUE: 2 views of the chest were obtained. FINDINGS: No focal airspace opacities, pleural effusion or pneumothorax. No evidence of pulmonary edema. Normal heart size. No acute osseous findings. Thoracic spondylosis. XR/XR chest 2V IMPRESSION: No acute cardiopulmonary findings.
[2023-09-17 18:31] VITALS: BP 168/90; PULSE 88; O2SAT 99
--- NOTE | 2023-09-17 18:36 | ECG_ITS ---
Test Reason : WEAKNESS Blood Pressure : / mmHG Vent. Rate : 071 BPM Atrial Rate : 071 BPM P-R Int : 170 ms QRS Dur : 088 ms QT Int : 408 ms P-R-T Axes : 063 112 070 degrees QTc Int : 443 ms Normal sinus rhythm Possible Right ventricular hypertrophy Abnormal ECG When compared with ECG of 22-SEP-2005 09:55, No significant change was found Referred By: Generic ED Physician Electronically Signed By:DERIC SULTANA MD
[2023-09-17 18:53] VITALS: BP 128/78; PULSE 74; RESP 18; TEMP 37.2; O2SAT 98
[2023-09-17 19:07] VITALS: TEMP 36.6; BMI 30.1
[2023-09-17 19:25] LABS: MANUAL DIFF FLAG NO
[2023-09-17 19:27] LABS: Basophils Absolute Auto 0.1 X10*3/uL (0.0-0.2); Basophils Percent Auto 0.9 % (0-2); Eosinophils Absolute Auto 0.2 X10*3/uL (0.0-0.4); Eosinophils Percent Auto 1.4 % (0-4); Hematocrit 39.6 % (37.0-47.0); Imm Gran Abs Auto 0.03 X10*3/uL (0.00-0.03); Imm Gran Pct Auto 0.3 % (0.0-0.4); Lymphocytes Absolute Auto 2.4 X10*3/uL (1.2-4.9); Lymphocytes Percent Auto 22.8 % (20-40); Mean Corpuscular HGB Conc 35.4 g/dl (31.0-35.0); Mean Corpuscular Volume 84.8 fL (80.0-98.0); Mean Platelet Volume 9.1 fL (9.4-12.3); Monocytes Absolute Auto 0.9 X10*3/uL (0.1-1.2); Monocytes Percent Auto 7.9 % (2-11); Neutrophils Absolute Auto 7.1 x10*3/uL (2.0-8.3); Neutrophils Percent Auto 66.7 % (45-73); Platelet Count 290 X10*3/uL (160-400); Red Blood Count 4.67 X10*6/uL (4.20-5.50); Red Cell Distribution Width 12.2 % (11.0-16.0); White Blood Count 10.7 X10*3/uL (4.8-10.8)
--- NOTE | 2023-09-17 19:31 | ED_ITS ---
HPI - General Adult General Chief complaint: Dizziness Stated complaint: sudden onset dizziness, tingling of arms Time Seen by Provider: 09/17/23 18:53 History of Present Illness HPI narrative: The patient is a 67-year-old woman who lives at home with her . She has been a lifelong smoker but she has been trying to quit recently. She has recently started wearing a nicotine patch. Her has been quite ill lately and she has been doing a lot of care for him at home. She said that she started using a nicotine patch in part to make she does not smoke around him as he recently had to stop smoking because of health reasons. Today at around 3:30PM she noticed a pain in her left pinky finger that came out of the blue. She was doing nothing in particular at the time. She looked at her finger and saw a small area of discoloration on the palmar aspect of the finger near the distal finger. She said the pain was a sharp pain. The pain faded fairly quickly. About 10 minutes later she started to feel a sense tingling in both of her legs mostly from the knees down. She found this very unsettling. She also started to feel dizzy. She says this was an unusual sensation. It was not like things were spinning. She says it felt like she was somehow disconnected. She has not had any difficulty speaking. She has not had any difficulty with urination or bowel movements. She has not had any weakness in the hands or arms. She has tingling in both of her legs but she has not had any sense of weakness in her legs. She has been able to walk. No fever, sweats, chills. Related Data Previous Rx's Medication Instructions Recorded sennosides 8.6 mg-docusate sodium 2 tab-cap (2 x 8.6-50 mg) PO 10/30/20 50 mg tablet (Senna with Docusate BEDTIME #60 tabs Sodium) acyclovir 5 % topical ointment 1 appl topical 6XD 7 days #15 grams 01/13/21 (Zovirax) lactulose 20 gram/30 mL oral 20 g (30 mL) PO BID #3,000 mL 09/16/21 solution alendronate 70 mg tablet (Fosamax) 70 mg PO QWEEK 30 days #5 tabs 10/07/22 baclofen 10 mg tablet 10 mg PO BID 90 days #180 caps 04/23/23 umeclidinium 62.5 mcg/actuation 1 inh inhalation DAILY #30 ea 04/23/23 blister powder for inhalation (Incruse Ellipta) budesonide-formoterol HFA 160 2 puff inhalation Q12H #10.2 grams 05/21/23 mcg-4.5 mcg/actuation aerosol inhaler (Symbicort) simvastatin 5 mg tablet 5 mg PO BEDTIME 30 days #90 tabs 07/01/23 bupropion HCl 100 mg tablet,12 hr See Rx Instructions PO .COMPLEX 90 07/06/23 sustained-release days #270 caps clonidine HCl 0.2 mg tablet 0.2 mg PO TID PRN anxiety 90 days 07/06/23 #270 tabs quetiapine 100 mg tablet (Seroquel) 200 mg (2 x 100 mg) PO BEDTIME 90 08/04/23 days #180 tabs albuterol sulfate 90 mcg/actuation 2 puff inhalation Q6H PRN for 09/06/23 aerosol inhaler wheezing #8.5 grams Allergies Allergy/AdvReac Type Severity Reaction Status Date / Time No Known Allergies Allergy Verified 08/05/23 09:23 [No Known Allergies*] Review of Systems 2 Review of Systems: Yes all other systems are reviewed and are negative [facility] Past Medical History Medical History (Updated 09/17/23 @ 21:08 by Kavon Mejia MD) Positive TB test Personal history of nicotine dependence Annual physical exam Herniation of intervertebral disc between L5 and S1 Trigeminal neuralgia Hemiplegic migraine Hypercholesterolemia Anxiety and depression Alcohol abuse History of hepatitis C Surgical History History of hemorrhoidectomy Family History Family History Father Medical history unknown Mother Chronic mental illness Social History Social History Housing: House Alcohol intake: former Patient Tobacco Use Status: Current everyday Tobacco user Tobacco use type: Cigarette Cigarettes Per Day: 3 Years Smoked: 42 (onset 22) Smoked in Last 30 Days: Yes e-Cigarette/Vaping Use: Never Used Second Hand Smoke Exposure: Yes Use of substances other than those prescribed or required for medical reasons: Yes Substance Use Type: Marijuana Advance Directives: Yes Advance Directives on File: Yes Advance Directives Date on File: 04/08/20 service: No Current occupational status: retired Cognitive needs: No Hearing needs: No Vision needs: Yes Physical Exam ED Vital Signs: Vital Signs - 24 hr 09/17/23 18:53 09/17/23 19:07 09/17/23 21:19 Temperature 98.9 F 98 F 98.3 F Pulse Rate 74 67 Respiratory Rate 18 12 Blood Pressure 128/78 132/79 Pulse Oximetry 98 95 Oxygen Delivery Method Room Air Room Air BMI result Body Mass Index 30.1 Const Other: The patient is awake, alert, pleasant, cooperative. She does not appear in acute distress. Mental status is normal. HENMT Other: Face is symmetrical. Mucous membranes moist. Pharynx is unremarkable. Eyes Other: Pupils are round equal, extraocular movements are intact. Lateral gaze is intact. Visual cruz are intact. Neck Other: No JVD, no neck swelling. No bruits Resp Effort & Inspection: normal respiratory effort Auscultation: clear to auscultation bilaterally Cardio Rate: regular rate Rhythm: regular rhythm Heart sounds: S1 normal heart sound present and S2 normal heart sound present GI Other: Abdomen is soft and nontender Skin Other: There is a small area of slightly bluish discoloration to the skin of the palmar aspect of the distal left pinky finger. This is just distal to the palmar crease of the DIP joint. The skin is otherwise dry and unremarkable Neuro Other: The patient is awake, alert, oriented, appropriate. Mental status is normal. Orientation is normal. Eye movements are intact. Pupils are equal. Visual cruz are intact to confrontation. No nystagmus. Face is symmetrical. Speech is clear. She has 5/5 strength in all 4 extremities. No pronator drift. Finger-nose is normal. Heel-shah is normal. She walks easily with a steady gait. No footdrop. No discoordination. The patient has intact sensation in all 4 extremities. NIH stroke scale is 0. Toes go down bilaterally. One to 2+ reflexes of the knees. Minimal reflexes at the ankles. Extrem Other: No peripheral edema. No calf swelling or tenderness. Excellent pulses in the feet. Medications Administered Discontinued Medications Generic Name Dose Route Start Last Admin Trade Name Freq PRN Reason Stop Dose Admin Sodium Chloride 1,000 mls @ 999 mls/hr 09/17/23 19:45 09/17/23 20:36 Ns IV 09/17/23 20:45 999 mls/hr .Q1H1M ARELIS Administration Medical Decision Making Medical Decision Making [facility] Narrative: The patient's presentation is unusual. She reports that her symptoms began with a sense of pain in her left pinky finger and a small area bruise like discoloration on the palmar aspect of the distal finger. This was followed sometime later by a sense of bilateral lower extremity numbness and tingling and a generalized sense of dizziness. Her description of the dizziness does not sound like vertigo. She has had no motor weakness. Sweats, chills. She has had no headache. No chest pain. Physical exam currently is quite benign. She has a small area of bruise like skin change to the distal left pinky finger. She has intact strength and a normal gait. Toes go down bilaterally. The patient's workup includes an unremarkable EKG. She is in sinus rhythm. She has not hypertensive. Labs are largely unremarkable. The patient was given IV fluids. She was observed. She did not seem to have any progression of her symptoms. She continued to look quite well. Ultimately I did not feel there was any clear indication for hospitalization or additional testing. She will be discharged with instructions to contact her regular doctor on Wednesday for prompt follow up or return to the ER if worse before then. Differential Diagnosis Differential Diagnoses: The differential diagnosis associated with the presentation includes Lab Data 09/17/23 19:20 09/17/23 19:20 Labs: Lab Results 09/17/23 09/17/23 Range/Units 19:20 20:10 WBC 10.7 (4.8-10.8) X10*3/uL RBC 4.67 (4.20-5.50) X10*6/uL Hgb 14.0 (12.0-16.0) g/dl Hct 39.6 (37.0-47.0) % MCV 84.8 (80.0-98.0) fL MCH 30.0 (27.0-33.0) pg MCHC 35.4 H (31.0-35.0) g/dl RDW 12.2 (11.0-16.0) % Plt Count 290 (160-400) X10*3/uL MPV 9.1 L (9.4-12.3) fL Immature Gran % (Auto) 0.3 (0.0-0.4) % Neut % (Auto) 66.7 (45-73) % Lymph % (Auto) 22.8 (20-40) % Sully % (Auto) 7.9 (2-11) % Eos % (Auto) 1.4 (0-4) % Baso % (Auto) 0.9 (0-2) % Lymph # (Auto) 2.4 (1.2-4.9) X10*3/uL Sully # (Auto) 0.9 (0.1-1.2) X10*3/uL Eos # (Auto) 0.2 (0.0-0.4) X10*3/uL Baso # (Auto) 0.1 (0.0-0.2) X10*3/uL Abs Immat Gran (auto) 0.03 (0.00-0.03) X10*3/uL Absolute Neuts (auto) 7.1 (2.0-8.3) x10*3/uL Absolute Nucleated RBC 0.000 (0.0-0.012) X10*3/uL Nucleated RBC % (auto) 0.0 (0.0-0.2) /100WBC PT 11.7 (11.1-13.3) SEC INR 1.0 (0.9-1.1) Sodium 134 L (135-145) mmol/L Potassium 4.3 (3.3-5.1) mmol/L Chloride 103 (96-108) mmol/L Carbon Dioxide 24 (22-29) mmol/L Anion Gap 11 L (12-20) BUN 9 (9-16) mg/dL Creatinine 0.90 (0.5-1.4) mg/dL Estim Creat Clear Calc 67.3 Estimated GFR > 60 Random Glucose 108 (60-115) mg/dL Calcium 9.7 (8.4-10.2) mg/dL Magnesium 2.1 (1.6-2.6) mg/dL Total Bilirubin 0.3 (0.0-1.0) mg/dL Direct Bilirubin 0.1 (0.0-0.5) mg/dL AST 15 (5-31) U/L ALT 10 (0-31) U/L Alkaline Phosphatase 66 (39-117) U/L Total Creatine Kinase 82 (26-140) U/L Troponin I High Sens < 2.7 (<3.5-17.0) ng/L C-Reactive Protein 0.11 (< or = 0.50) mg/dL B-Natriuretic Peptide 14 (<100) pg/mL Total Protein 7.2 (6.5-8.0) g/dL Albumin 4.1 (3.5-5.0) g/dL Urine Color Yellow Urine Appearance Clear Urine pH 7.0 (5.0-9.0) Ur Specific [place] <= 1.005 (1.005-1.025) Urine Protein Negative (Neg-Trace) mg/dL Urine Glucose (UA) Negative (Negative) mg/dL Urine Ketones Negative (Negative) mg/dL Urine Blood Negative (Negative) Urine Nitrite Negative (Negative) Ur Leukocyte Esterase Moderate (2+) H (Negative) Urine RBC 0-2 (0-2) /HPF Urine WBC 6-10 H (0-5) /HPF Ur Squamous Epith Cells 0-2 (0-2) /HPF Urine Bacteria None Seen (None Seen) Hyaline Casts 0-2 (0-2) /LPF Influenza Type A (PCR) NEGATIVE (Negative) Influenza Type B (PCR) NEGATIVE (Negative) RSV RNA Qual (PCR) NEGATIVE (Negative) SARS-CoV-2 RNA (RT-PCR) NEGATIVE (Negative) Independent Interpretation I performed an independent interpretation of an: EKG Interpretation: EKG at 19:08 shows normal sinus rhythm at 71 beats per minute. No definite acute ischemic changes. Discharge Plan Discharge Clinical Impression: Discoloration of skin of finger, Numbness and tingling of both legs below knees, Dizziness Patient Disposition: Home, Self-Care Additional Instructions: Your testing in the emergency room today seems quite reassuring. At the moment that does not seem to be any acutely dangerous process at work. I think returning home tonight with a plan to follow up with your regular doctor next week is reasonable. Continue your regular medications. Call your regular doctor on Wednesday morning. If at any point you feel significantly worse please return to the emergency room for further evaluation. Prescriptions: No Action acyclovir [Zovirax] 5 % ointment 1 appl topical 6XD 7 Days Qty: 15 0RF baclofen 10 mg tablet 10 mg PO BID 90 Days Qty: 180 1RF budesonide-formoterol [Symbicort] 160-4.5 mcg/actuation HFA aerosol inhaler 2 puff inhalation Q12H Qty: 10.2 4RF simvastatin 5 mg tablet 5 mg PO BEDTIME 30 Days Qty: 90 3RF bupropion HCl 100 mg tablet sustained-release 12 hr See Rx Instructions PO .COMPLEX 90 Days Qty: 270 2RF Rx Instructions: Take 2 tablets in the morning and 1 tablet in the afternoon PO; clonidine HCl 0.2 mg tablet 0.2 mg PO TID PRN (Reason: anxiety) 90 Days Qty: 270 2RF quetiapine [Seroquel] 100 mg tablet 200 mg PO BEDTIME 90 Days Qty: 180 1RF albuterol sulfate 90 mcg/actuation HFA aerosol inhaler 2 puff inhalation Q6H PRN (Reason: for wheezing) Qty: 8.5 2RF sennosides-docusate sodium [Senna with Docusate Sodium] 8.6-50 mg tablet 2 tab-cap PO BEDTIME Qty: 60 11RF lactulose 20 gram/30 mL solution 20 g PO BID Qty: 3000 4RF alendronate [Fosamax] 70 mg tablet 70 mg PO QWEEK 30 Days Qty: 5 11RF Incruse Ellipta 62.5 mcg/actuation blister with device 1 inh inhalation DAILY Qty: 30 2RF Interventions: ED Discharge Assessment Last Done: 09/17/23 21:19 Discharge Date/Time: 09/17/23 21:25
[2023-09-17 19:33] LABS: Prothrombin Time 11.7 SEC (11.1-13.3)
[2023-09-17 19:47] LABS: Alanine Aminotransferase 10 U/L (0-31); Albumin Level 4.1 g/dL (3.5-5.0); Alkaline Phosphatase 66 U/L (39-117); Anion Gap 11 (12-20); Aspartate Amino Transferase 15 U/L (5-31); Bilirubin Direct 0.1 mg/dL (0.0-0.5); Bilirubin Total 0.3 mg/dL (0.0-1.0); Blood Urea Nitrogen 9 mg/dL (9-16); C Reactive Protein 0.11 mg/dL (< or = 0.50); Calcium 9.7 mg/dL (8.4-10.2); Carbon Dioxide 24 mmol/L (22-29); Chloride 103 mmol/L (96-108); Creatinine Clr Calc Pharmacy 67.3; Estimated Glomerular Filt Rate > 60; Glucose Random 108 mg/dL (60-115); Magnesium 2.1 mg/dL (1.6-2.6); Potassium 4.3 mmol/L (3.3-5.1); Sodium 134 mmol/L (135-145); Total Protein 7.2 g/dL (6.5-8.0)
[2023-09-17 19:49] LABS: B Type Natriuretic Peptide 14 pg/mL (<100)
[2023-09-17 19:58] LABS: Troponin-I High Sensitivity < 2.7 ng/L (<3.5-17.0)
[2023-09-17 20:24] LABS: Appearance Urine Clear; Color Urine Yellow; Glucose Urine UA Negative (Negative); Leukocyte Esterase Urine Moderate (2+) (Negative); Nitrite Urine Negative (Negative); Specific Gravity - Urine <= 1.005 (1.005-1.025); UMIC TRIGGER UACC YES; Urine Blood Negative (Negative); Urine Ketones Negative (Negative); Urine Protein Negative (Neg-Trace)
[2023-09-17 20:28] LABS: Bacteria Urine None Seen (None Seen); Hyaline Casts Urine 0-2 /LPF (0-2); RBC Urine 0-2 /HPF (0-2); Squamous Epithelial Cell Urine 0-2 /HPF (0-2); UACC Culture Trigger YES
[2023-09-17] MEDS: 0.9 % Sodium Chloride 1,000 ML 999 ML IV (20:36)
[2023-09-17 20:57] LABS: Influenza A PCR NEGATIVE (Negative); Influenza B PCR NEGATIVE (Negative); Resp Syncy Virus RNA Qual PCR NEGATIVE (Negative); SARS COV2 PCR INHOUSE NEGATIVE (Negative)
[2023-09-17 21:19] VITALS: BP 132/79; PULSE 67; RESP 12; TEMP 36.8; O2SAT 95
== END 2023-09-17 21:25 | disposition home or self-care (01) ==
PROVIDERS: Emergency Provider Emergency Medicine; PCP Internal Medicine
DX: R42 Dizziness and giddiness (principal); R23.8 Other skin changes; R20.0 Anesthesia of skin; R20.2 Paresthesia of skin; Z11.52 Encounter for screening for COVID-19; Z20.828 Contact with and (suspected) exposure to other viral communicable diseases
CPT/HCPCS: 0241U; 36415; 71046; 80048; 80076; 81001; 82550; 83735; 83880; 84484; 85025; 85610; 86140; 87086; 93005; 99283; 99285

== ENCOUNTER → 2023-09-17 18:36 | Outpatient (BNV) | payer MEDICARE, MEDICAID, SELFPAY | PROVIDERS: Emergency Provider Emergency Medicine; PCP Internal Medicine; Visit Provider Internal Medicine Cardiovascular Disease | DX: R53.1 Weakness (principal) | CPT/HCPCS: 93010 ==

== ENCOUNTER 2023-12-02 09:42 | Outpatient (AMB) | payer MEDICARE, MEDICAID, SELFPAY ==
[2023-12-02 09:45] VITALS: BP 132/78; PULSE 72; O2SAT 98; BMI 28.7
--- NOTE | 2023-12-02 09:45 | MHC.PC.OV ---
Vital Signs 12/02/23 09:45 Height 5 ft 6 in Weight 178 lb 0.6 oz BMI 28.7 BP 132/78 Blood Pressure Location Lt brachial Position Sitting Pulse 72 Pulse Source Pulse Oximeter Pulse Oximetry (%) 98 Oxygen Delivery Method Room Air Intake Visit Reasons: elevated blood pressure Instructional Coordinator Required: No Allergies No Known Allergies [No Known Allergies*] Allergy (Verified 12/02/23 09:51) Medication List - Last Reconciled 12/02/23 by Steph Velasquez MD acyclovir 5% (Zovirax) 1 appl topical 6XD 7 days albuterol sulfate 90 mcg/actuation 2 puffs inhalation Q6H PRN alendronate (Fosamax) 70 mg PO QWEEK 30 days baclofen 10 mg PO BID 90 days budesonide-formoterol 160-4.5 mcg/actuation (Symbicort) 2 puffs inhalation Q12H bupropion HCl SR Take 2 tablets in the morning and 1 tablet in the afternoon PO; 90 days clonidine HCl 0.2 mg PO TID PRN 90 days lactulose 20 grams (30 mL) PO BID quetiapine (Seroquel) 200 mg (2 x 100 mg) PO BEDTIME 90 days sennosides-docusate sodium 8.6-50 mg (Senna with Docusate Sodium) 2 tab-caps (2 x 8.6-50 mg) PO BEDTIME simvastatin 5 mg PO BEDTIME 30 days Tobacco use date assessed: 08/05/23 Fall risk assessment: No Falls in past year Last assessed Fall Risk: 12/02/23 Dental Screening Dental Screen Date: 12/02/23 (dentures ) Did you have a dental visit in the last 12 months?: No Did you have a dental problem in the last 6 months where you did not have access to dental care?: No HPI elevated blood pressure HPI Details 68-year-old overweight female smoker with COPD osteoporosis impaired glucose tolerance last seen in 08/24/2023. Patient had tubular adenoma for colonoscopy in December 2018 as was reminded follow up with Gastroenterology mammogram is due next month bone density is up-to-date 05/24/2023. Review of the notes in September was in the hospital for dizziness workup negative and just noted discoloration of the skin of the finger. Dx of hemiplegic migraine hsitory ? because of antihistamine PFSH Medical History (Updated 12/02/23 @ 10:11 by Steph Velasquez MD) Positive TB test Personal history of nicotine dependence Annual physical exam Herniation of intervertebral disc between L5 and S1 Trigeminal neuralgia Hemiplegic migraine Hypercholesterolemia Anxiety and depression Alcohol abuse History of hepatitis C Surgical History History of hemorrhoidectomy Family History Father Medical history unknown Mother Chronic mental illness Social History Housing: House Alcohol intake: former Patient Tobacco Use Status: Current everyday Tobacco user Tobacco use type: Cigarette Cigarettes Per Day: 3 Years Smoked: 42 (onset 22) Packs per year/per ci.00 e-Cigarette/Vaping Use: Never Used Second Hand Smoke Exposure: Yes Substance Use Type: Marijuana Advance Directives Date on File: 04/08/20 service: No Current occupational status: retired Cognitive needs: No Hearing needs: No Vision needs: Yes Questionnaire Thrive Questionnaire Date Thrive assessed: 12/29/21 AUDIT C Alcohol Use Questionnaire (AUDIT-C) 1. How often do you have a drink containing alcohol?: Monthly or less 2. How many drinks containing alcohol do you have on a typical day when you are drinking?: 1 or 2 3. How often do you have six or more drinks on one occasion?: Never Total Score: 1 KVNG-7 AMB Questionnaire KVNG-7 Date KVNG - 7 assessed: 08/05/23 Source: Developed by Drs. Abner Harrison, Kasia Benitez, Dejon Stevenson and colleagues, with an educational josephine from [employer]. Physical exam (Primary Care) Vital Signs: Last Vital Signs Pulse 72 12/02/23 09:45 BP 132/78 12/02/23 09:45 Pulse Ox 98 12/02/23 09:45 Oxygen Delivery Method Room Air 12/02/23 09:45 BMI result Body Mass Index 28.7 Tobacco/Smoking Status: Tobacco use Status Tobacco use date assessed 08/05/23 12/02/23 09:54 Patient Tobacco Use Status Current everyday Tobacco 12/02/23 09:54 Tobacco use type Cigarette 12/02/23 09:54 e-Cigarette/Vaping Use Never Used 12/02/23 09:54 Thrive Assessment: Date of Thrive Assessment Date Thrive assessed 12/29/21 12/02/23 09:54 Const General: alert; No acute distress Eyes Conjunctivae: conjunctivae normal Resp Auscultation: clear to auscultation bilaterally Cardio Rate: regular rate Rhythm: regular rhythm GI Inspection: Yes normal to inspection Extrem General: Yes normal to inspection and No edema Assessment and Plan Assessment & Plan (1) Blood pressure elevated without history of HTN: Code(s): R03.0 - Elevated blood-pressure reading, without diagnosis of hypertension Plan: Blood pressure is better (2) Tubular adenoma of colon: Code(s): D12.6 - Benign neoplasm of colon, unspecified Plan: Patient is reminded about colonoscopy again (3) Tobacco abuse: Comment: 08/24/2022 lung cancer screening Code(s): Z72.0 - Tobacco use Plan: Patient is strongly advised to stop smoking! And reminded about the lung cancer screening program. (4) Emphysema lung: Comment: PFT March 2022 Code(s): J43.9 - Emphysema, unspecified Plan: Stop smoking! On albuterol , Incruse and Symbicort (5) Generalized anxiety disorder: Comment: [facility] Code(s): F41.1 - Generalized anxiety disorder Plan: Continue with present medication of Pre-Pen prior clonidine (6) Dizziness: Code(s): R42 - Dizziness and giddiness Plan: blood work discussed were within N limits- discussed about allergy meds to try as patient experiences this only in am Orders: Referrals Gastroenterology Referral D12.6 - Benign neoplasm of colon, unspecified Coding Level of Care Code Est Pt Level 4 (77643) Diagnoses Blood pressure elevated without history of HTN R03.0 Tubular adenoma of colon D12.6 Tobacco abuse Z72.0 Emphysema lung J43.9 Generalized anxiety disorder F41.1 Dizziness R42
== END 2023-12-02 10:30 | disposition home or self-care (01) ==
PROVIDERS: PCP Internal Medicine; Visit Provider Internal Medicine
DX: R03.0 Elevated blood-pressure reading, without diagnosis of hypertension (principal); D12.6 Benign neoplasm of colon, unspecified; Z72.0 Tobacco use; J43.9 Emphysema, unspecified; F41.1 Generalized anxiety disorder; R42 Dizziness and giddiness
CPT/HCPCS: 99214

== ENCOUNTER 2024-04-05 06:15 | Outpatient (REF) | payer MEDICARE, MEDICAID, SELFPAY ==
[2024-04-06 21:33] LABS: Lyme Abs Screen <0.90 index
== END 2024-04-05 06:16 | disposition home or self-care (01) ==
LOC: HO.LAB 06:15
PROVIDERS: PCP Internal Medicine; Visit Provider Internal Medicine
DX: M25.50 Pain in unspecified joint (principal)
CPT/HCPCS: 36415; 86617; 86618

== ENCOUNTER 2024-07-24 09:49 | Outpatient (AMB) | payer MEDICARE, MEDICAID, SELFPAY ==
[2024-07-24 09:53] VITALS: BP 134/72; PULSE 80; O2SAT 95; BMI 29.0
--- NOTE | 2024-07-24 09:53 | MHC.PC.OV ---
Vital Signs 07/24/24 09:53 Height 5 ft 6 in Weight 180 lb BMI 29.0 BP 134/72 Blood Pressure Location Lt brachial Position Sitting Pulse 80 Pulse Source Palpation Pulse Oximetry (%) 95 Oxygen Delivery Method Room Air Intake Visit Reasons: F/U Med review Allergies No Known Allergies [No Known Allergies*] Allergy (Verified 07/24/24 09:54) Tobacco use date assessed: 07/24/24 Fall risk assessment: No Falls in past year Last assessed Fall Risk: 07/24/24 Dental Screening Dental Screen Date: 07/24/24 (dentures ) Did you have a dental visit in the last 12 months?: Yes Did you have a dental problem in the last 6 months where you did not have access to dental care?: No Was dental information given to patient?: Patient has dentist HPI F/U Med review HPI Details The patient is a 68-year-old female presenting with Chronic Obstructive Pulmonary Disease (COPD). She reports dyspnea and decreased exercise tolerance compared to her baseline three-mile daily walks. The patient attributes this to her past smoking habit, although she has reduced smoking to two cigarettes per day. She is currently prescribed an albuterol inhaler for symptomatic relief and a controller inhaler (likely fluticasone/salmeterol). However, she admits to using the controller inhaler only once daily instead of the prescribed twice daily due to forgetfulness. Additionally, the patient has a history of Hepatitis C, for which she was treated multiple times with interferon therapy in the , resulting in cirrhosis. Past medical tests, including bone density and liver function tests, are reviewed, and she is compliant with her mammograms. She expresses concern about the possibility of developing liver cancer due to her history of cirrhosis. [facility] Medical History (Updated 07/24/24 @ 09:56 by Steph Velasquez MD) Positive TB test Personal history of nicotine dependence Annual physical exam Herniation of intervertebral disc between L5 and S1 Trigeminal neuralgia Hemiplegic migraine Hypercholesterolemia Anxiety and depression Alcohol abuse History of hepatitis C Surgical History History of hemorrhoidectomy Family History Father Medical history unknown Mother Chronic mental illness Social History Housing: House Alcohol intake: former Patient Tobacco Use Status: Current everyday Tobacco user Tobacco use type: Cigarette Cigarettes Per Day: 3 Years Smoked: 42 (onset 22) e-Cigarette/Vaping Use: Never Used Second Hand Smoke Exposure: Yes Substance Use Type: Marijuana Advance Directives Date on File: 04/08/20 service: No Current occupational status: retired Cognitive needs: No Hearing needs: No Vision needs: Yes Questionnaire PHQ-9 Over the last 2 weeks, how often have you been bothered by any of the following problems? 1. Little interest or pleasure in doing things: not at all 2. Feeling down, depressed, or hopeless: not at all 3. Trouble falling or staying asleep, or sleeping too much: not at all 4. Feeling tired or having little energy: not at all 5. Poor appetite or overeating: not at all 6. Feeling bad about yourself - or that you are a failure or have let yourself or your family down: not at all 7. Trouble concentrating on things, such as reading the newspaper or watching television: not at all 8. Moving or speaking so slowly that other people could have noticed. Or the opposite - being so fidgety or restless that you have been moving around a lot more than usual: not at all 9. Thoughts that you would be better off or of hurting yourself in some way: not at all Total score: 0 Depression Screening Interpretation: Negative Depression Screening Done: Yes Source: Developed by Drs. Abner Harrison, Kasia Benitez, Dejon Stevenson and colleagues, with an educational josephine from [employer]. Thrive Questionnaire Date Thrive assessed: 07/24/24 I am a: Patient What is your living situation today?: I have a steady place to live Within the past 12 months, did the food you bought not last and you didn't have the money to get more?: Never true Within the past 12 months, did you worry whether your food would run out before you got money to buy more?: Never true Do you have trouble paying for medicines?: No Do you have trouble getting transportation to medical appointments?: No Do you have trouble paying your heating and electricity bill?: No Do you have trouble taking care of your child, family member or friend?: No Do you have trouble with day-to-day activities such as bathing, preparing meals, shopping, managing finances, etc.?: No Are you currently unemployed and looking for a job?: No Are you interested in more education?: No Currently or been in a relationship where the following occur: No concerns reported THRIVE Score: 0 AUDIT C Alcohol Use Questionnaire (AUDIT-C) 1. How often do you have a drink containing alcohol?: Monthly or less 2. How many drinks containing alcohol do you have on a typical day when you are drinking?: 1 or 2 3. How often do you have six or more drinks on one occasion?: Never Total Score: 1 KVNG-7 AMB Questionnaire KVNG-7 Date KVNG - 7 assessed: 07/24/24 Feeling nervous, anxious, or on edge: 0 = Not at all Not being able to stop or control worryin = Not at all Worrying too much about different things: 0 = Not at all Trouble relaxin = Not at all Being so restless that it is hard to sit still: 0 = Not at all Becoming easily annoyed or irritable: 0 = Not at all Feeling afraid as if something awful might happen: 0 = Not at all Total KVNG-7 score (0-4 normal; 5-9 mild; 10-14 moderate; 15-21 severe): 0 Source: Developed by Drs. Abner Harrison, Kasia Benitez, Dejon Stevenson and colleagues, with an educational josephine from [employer]. Physical exam (Primary Care) Vital Signs: Oxygen Delivery Method Room Air 07/24/24 09:53 Tobacco/Smoking Status: Tobacco use Status Tobacco use date assessed 07/24/24 07/24/24 09:55 Patient Tobacco Use Status Current everyday Tobacco 07/24/24 09:55 Tobacco use type Cigarette 07/24/24 09:55 e-Cigarette/Vaping Use Never Used 07/24/24 09:55 PHQ-9: PHQ-9 Score PHQ-9: Total score 0 07/24/24 09:55 Depression Screening Interpretation: Negative Thrive Assessment: Date of Thrive Assessment Date Thrive assessed 07/24/24 07/24/24 09:55 Currently or been in a relationship where the following occur: No concerns reported Const General: alert; No acute distress Eyes Conjunctivae: conjunctivae normal Resp Auscultation: clear to auscultation bilaterally Cardio Rate: regular rate Rhythm: regular rhythm GI Inspection: Yes normal to inspection Extrem General: Yes normal to inspection and No edema Coding Level of Care Code Est Pt Level 4 (66997) Complex EM visit Add On G2211 Diagnoses Hypercholesterolemia E78.00 Impaired glucose tolerance R73.02 Generalized anxiety disorder F41.1 Tobacco abuse Z72.0 Emphysema lung J43.9 Tubular adenoma of colon D12.6 Breast cancer screening by mammogram Assessment & Plan Assessment & Plan (1) Hypercholesterolemia: Code(s): E78.00 - Pure hypercholesterolemia, unspecified Category: Medical Plan: on Simvastatin and will need blood testing (2) Impaired glucose tolerance: Code(s): R73.02 - Impaired glucose tolerance (oral) Category: Medical Plan: blood work advised (3) Generalized anxiety disorder: Comment: Major depression with night terrors followed by[facility] psychiatric mental health nurse Code(s): F41.1 - Generalized anxiety disorder Category: Medical Plan: continue with counselling and therapy (4) Tobacco abuse: Comment: 08/24/2022 lung cancer screening Code(s): Z72.0 - Tobacco use Category: Medical Plan: reminded about lung cnacer screening and Please STOP! (5) Emphysema lung: Comment: PFT March 2022 Code(s): J43.9 - Emphysema, unspecified Category: Medical Plan: stop smoking (6) Tubular adenoma of colon: Code(s): D12.6 - Benign neoplasm of colon, unspecified Category: Medical Plan: reminded about colon test (7) Breast cancer screening by mammogram: Code(s): Z07.04 - Encounter for screening mammogram for malignant neoplasm of breast Category: Medical Plan: reminded Plan - Instruct the patient to use the controller inhaler likely fluticasone/salmeterol) twice daily as prescribed to manage COPD symptoms effectively. - Advise the patient on the importance of maintaining proper usage of her inhalers and rinsing her mouth post-use due to steroid content. - Educate on the need for regular reassessment and management of COPD. Recommend patient contacts the clinic promptly if respiratory symptoms persist despite adherence to inhaler regimen. - Refer to Dr. Sotelo for evaluation of liver status and potential hepatocellular carcinoma surveillance, given her history of Hepatitis C and cirrhosis. - Recommend lung cancer screening via low-dose CT LDCT) as part of the lung cancer screening program. - Ensure upcoming bone density scan in line with previous evaluations to monitor osteoporosis risk. - Recommend continuing current vaccination status against influenza and COVID-19, with adherence to preventive measures against respiratory viruses. - Discuss the importance of smoking cessation and provide information on potential support resources or pharmaceutical aids. Orders: Orders Free T4 (Free Thyroxine) Today R73.02 - Impaired glucose tolerance (oral) Thyroid Stimulating Hormone Today R73.02 - Impaired glucose tolerance (oral) Complete Blood Count Auto Diff Today R73.02 - Impaired glucose tolerance (oral) Comprehensive Met. Panel Today R73.02 - Impaired glucose tolerance (oral) Lipid Panel Today E78.00 - Pure hypercholesterolemia, unspecified, R73.02 - Impaired glucose tolerance (oral) Vitamin D 25-OH Total Today R73.02 - Impaired glucose tolerance (oral) Hemoglobin A1c Today R73.02 - Impaired glucose tolerance (oral) Vitamin B12 and Folate Today R73.02 - Impaired glucose tolerance (oral) MM tomosynthesis screening BI Today Z12.31 - Encounter for screening mammogram for malignant neoplasm of breast Referrals Gastroenterology Referral D12.6 - Benign neoplasm of colon, unspecified
== END 2024-07-24 10:21 | disposition home or self-care (01) ==
PROVIDERS: PCP Internal Medicine; Visit Provider Internal Medicine
DX: E78.00 Pure hypercholesterolemia, unspecified (principal); R73.02 Impaired glucose tolerance (oral); F41.1 Generalized anxiety disorder; Z72.0 Tobacco use; J43.9 Emphysema, unspecified; D12.6 Benign neoplasm of colon, unspecified; Z12.31 Encounter for screening mammogram for malignant neoplasm of breast

== ENCOUNTER → 2024-07-24 09:49 | Outpatient (BNVA) | payer MEDICARE, MEDICAID, SELFPAY | PROVIDERS: PCP Internal Medicine; Visit Provider Internal Medicine | DX: E78.00 Pure hypercholesterolemia, unspecified (principal); R73.02 Impaired glucose tolerance (oral); F41.1 Generalized anxiety disorder; J43.9 Emphysema, unspecified; D12.6 Benign neoplasm of colon, unspecified; Z72.0 Tobacco use | CPT/HCPCS: 99212 ==

== ENCOUNTER 2024-08-18 13:32 | Outpatient (REF) | payer MEDICARE, MEDICAID, SELFPAY | END 2024-08-18 13:33 | disposition home or self-care (01) | LOC: HO.MAMMO 13:32 | PROVIDERS: PCP Internal Medicine; Visit Provider Internal Medicine | DX: Z12.31 Encounter for screening mammogram for malignant neoplasm of breast (principal) | CPT/HCPCS: 77063; 77067 ==

== ENCOUNTER → 2024-08-18 13:45 | Outpatient (BNV) | payer MEDICARE, MEDICAID, SELFPAY | PROVIDERS: PCP Internal Medicine; Visit Provider Internal Medicine | DX: Z12.31 Encounter for screening mammogram for malignant neoplasm of breast (principal) | CPT/HCPCS: 77063; 77067 ==

== ENCOUNTER 2024-09-21 08:01 | Outpatient (REF) | payer MEDICARE, MEDICAID, SELFPAY ==
[2024-09-21 10:24] LABS: MANUAL DIFF FLAG NO
[2024-09-21 10:30] LABS: Basophils Absolute Auto 0.1 X10*3/uL (0.0-0.2); Eosinophils Absolute Auto 0.4 X10*3/uL (0.0-0.4); Hematocrit 42.5 % (37.0-47.0); Hemoglobin 14.5 g/dl (12.0-16.0); Imm Gran Abs Auto 0.02 X10*3/uL (0.00-0.03); Imm Gran Pct Auto 0.2 % (0.0-0.4); Lymphocytes Absolute Auto 4.8 X10*3/uL (1.2-4.9); Lymphocytes Percent Auto 47.9 % (20-40); Mean Corpuscular HGB Conc 34.1 g/dl (31.0-35.0); Mean Corpuscular Hemoglobin 29.5 pg (27.0-33.0); Mean Corpuscular Volume 86.6 fL (80.0-98.0); Mean Platelet Volume 9.1 fL (9.4-12.3); Monocytes Absolute Auto 0.8 X10*3/uL (0.1-1.2); Monocytes Percent Auto 7.5 % (2-11); Neutrophils Percent Auto 39.4 % (45-73); Platelet Count 344 X10*3/uL (160-400); Red Blood Count 4.91 X10*6/uL (4.20-5.50); Red Cell Distribution Width 12.3 % (11.0-16.0)
[2024-09-21 10:39] LABS: Estimated Average Glucose 111 mg/dL; Hemoglobin A1c % 5.5 % (<6.0); Total Hemoglobin (HGBA1C) 3902.4936 umol/L
[2024-09-21 11:08] LABS: Alanine Aminotransferase 18 U/L (0-31); Albumin Level 4.2 g/dL (3.5-5.0); Anion Gap 9 (12-20); Aspartate Amino Transferase 19 U/L (5-31); Bilirubin Total 0.6 mg/dL (0.0-1.0); Blood Urea Nitrogen 9 mg/dL (9-16); Calcium 9.9 mg/dL (8.4-10.2); Carbon Dioxide 29 mmol/L (22-29); Chloride 105 mmol/L (96-108); Cholesterol 204 mg/dL (<200); Estimated Glomerular Filt Rate > 60; Free T4 (Free Thyroxine) 0.99 ng/dL (0.71-1.85); Glucose Random 100 mg/dL (60-115); HDL Cholesterol 59 mg/dL (>40); LDL Cholesterol Calculated 118 mg/dL (<100); Potassium 4.1 mmol/L (3.3-5.1); Sodium 139 mmol/L (135-145); Thyroid Stimulating Hormone 3.42 uIU/mL (0.32-4.0); Total Protein 7.6 g/dL (6.5-8.0); Triglycerides 135 mg/dL (<150)
[2024-09-21 11:12] LABS: Folate 6.7 ng/mL (> or = 4.0); Vitamin B12 420 pg/mL (200-900)
[2024-09-21 11:21] LABS: Alkaline Phosphatase 57 U/L (39-117)
== END 2024-09-21 08:02 | disposition home or self-care (01) ==
LOC: HO.10HDL 08:01
PROVIDERS: Visit Provider Internal Medicine
DX: R73.02 Impaired glucose tolerance (oral) (principal); E78.00 Pure hypercholesterolemia, unspecified
CPT/HCPCS: 36415; 80053; 80061; 82306; 82607; 82746; 83036; 84439; 84443; 85025

== ENCOUNTER 2024-10-25 10:10 | Outpatient (AMB) | payer MEDICARE, MEDICAID, SELFPAY ==
[2024-10-25 10:31] VITALS: BP 144/78; PULSE 80; O2SAT 97; BMI 27.3
--- NOTE | 2024-10-25 10:31 | A.OFFPC_ITS ---
Vital Signs 10/25/24 10:31 10/25/24 10:58 Height 5 ft 6 in Weight 169 lb BMI 27.3 BP 144/78 H 136/70 Blood Pressure Location Lt brachial Lt brachial Position Sitting Sitting Pulse 80 Pulse Source Pulse Oximeter Pulse Oximetry (%) 97 Oxygen Delivery Method Room Air Intake Visit Reasons: COPD Allergies No Known Allergies [No Known Allergies*] Allergy (Verified 10/25/24 10:32) Tobacco use date assessed: 07/24/24 Fall risk assessment: No Falls in past year Last assessed Fall Risk: 10/25/24 Dental Screening Dental Screen Date: 07/24/24 (dentures ) HPI COPD HPI Details fforehead biopsy under Dr. Bolanos 2 weeks already. chest pain while lying down. still smoking and has the patch. dicsussed the need to stop that [facility] [place] Medical History (Updated 10/25/24 @ 11:02 by Steph Velasquez MD) Positive TB test Personal history of nicotine dependence Annual physical exam Herniation of intervertebral disc between L5 and S1 Trigeminal neuralgia Hemiplegic migraine Hypercholesterolemia Anxiety and depression Alcohol abuse History of hepatitis C Surgical History History of hemorrhoidectomy Family History Father Medical history unknown Mother Chronic mental illness Social History Housing: House Alcohol intake: former Patient Tobacco Use Status: Current everyday Tobacco user Tobacco use type: Cigarette Cigarettes Per Day: 3 Years Smoked: 42 (onset 22) e-Cigarette/Vaping Use: Never Used Second Hand Smoke Exposure: Yes Substance Use Type: Marijuana Advance Directives Date on File: 04/08/20 service: No Current occupational status: retired Cognitive needs: No Hearing needs: No Vision needs: Yes Questionnaire Thrive Questionnaire Date Thrive assessed: 07/24/24 KVNG-7 AMB Questionnaire KVNG-7 Date KVNG - 7 assessed: 07/24/24 Source: Developed by Drs. Abner Harrison, Kasia Benitez, Dejon rachel nd colleagues, with an educational josephine from [employer]. Physical exam (Primary Care) Vital Signs: Last Vital Signs Pulse 80 10/25/24 10:31 BP 136/70 10/25/24 10:58 Pulse Ox 97 10/25/24 10:31 Oxygen Delivery Method Room Air 10/25/24 10:31 BMI result Body Mass Index 27.3 Tobacco/Smoking Status: Tobacco use Status Tobacco use date assessed 07/24/24 10/25/24 10:33 Patient Tobacco Use Status Current everyday Tobacco 10/25/24 10:33 Tobacco use type Cigarette 10/25/24 10:33 e-Cigarette/Vaping Use Never Used 10/25/24 10:33 Thrive Assessment: Date of Thrive Assessment Date Thrive assessed 07/24/24 10/25/24 10:33 Const General: alert; No acute distress Eyes Conjunctivae: conjunctivae normal Resp Auscultation: clear to auscultation bilaterally Cardio Rate: regular rate Rhythm: regular rhythm GI Inspection: Yes normal to inspection Extrem General: Yes normal to inspection and No edema Coding Level of Care Code Est Pt Level 4 (22201) Complex EM visit Add On G2211 Diagnoses Tubular adenoma of colon D12.6 Emphysema lung J43.9 Tobacco abuse Z72.0 Impaired glucose tolerance R73.02 Hypercholesterolemia E78.00 Generalized anxiety disorder F41.1 Chest pain R07.9 Assessment & Plan Assessment & Plan (1) Tubular adenoma of colon: Code(s): D12.6 - Benign neoplasm of colon, unspecified Category: Medical Plan: Patient is reminded about colonoscopy (2) Emphysema lung: Comment: PFT March 2022 Code(s): J43.9 - Emphysema, unspecified Category: Medical Plan: Patient on albuterol inhaler and Symbicort patient is advised to stop smoking (3) Tobacco abuse: Comment: 08/24/2022 lung cancer screening Code(s): Z72.0 - Tobacco use Category: Medical Plan: Patient is strongly advised to stop smoking! (4) Impaired glucose tolerance: Code(s): R73.02 - Impaired glucose tolerance (oral) Category: Medical Plan: Decrease the amount of carbohydrate intake, pasta, bread, rice and potatoes are all sugar and that is aside from all the sweet stuff, remember that fruits are good but they are Sweet also. Normal hemoglobin A1c (5) Hypercholesterolemia: Code(s): E78.00 - Pure hypercholesterolemia, unspecified Category: Medical Plan: Avoid fried foods, chicken skin, eggs, butter margarine, pastries and meat. Be it pork or beef they have a lot of cholesterol on simvastatin 5 mg once a day LDL goal of less than 130 and triglyceride of less than 150 (6) Generalized anxiety disorder: Comment: Major depression with night terrors followed Junior tee NP Code(s): F41.1 - Generalized anxiety disorder Category: Medical Plan: Using Seroquel clonidine Wellbutrin (7) Chest pain: Code(s): R07.9 - Chest pain, unspecified Category: Medical Plan History of Present Illness The patient is a 68-year-old female presenting for a follow-up on her chronic conditions. She has a history of impaired glucose tolerance managed with lifestyle modifications, hypercholesterolemia for which she is on Simvastatin, and COPD. She continues to smoke despite being advised against it and inconsistently uses a nicotine patch. She reports a recent weight loss of 11 pounds. She also reports atypical chest pressure occurring infrequently when at rest but not during exertion. Her September blood work returned normal results, including renal and liver function tests, with her current cholesterol management being effective. Current blood pressure is measured at 136/70 mmHg. Health Maintenance - Cholesterol management with Simvastatin - Advised smoking cessation for COPD and overall health improvement - Regular mammogram and bone density test are up to date - Referral for colonoscopy - Regular monitoring of blood pressure - Scheduled annual CAT scan of the chest Social History - Smoker: Advised to quit and using nicotine patches inconsistently - Accompanied by a new dog, indicating increased activity by walking regularly - Expressed concern over managing smoking habits, especially during social interactions Review of Systems - General: Reports weight loss of 11 pounds - Cardiovascular: Reports chest pressure and occasional sharp pain - Respiratory: Reports current smoking status - Gastrointestinal: Denies heartburn - Musculoskeletal: Denies pain on movement or exertion Physical Exam - Vitals- Blood pressure 136/70 mmHg - Cardiovascular- Heart sounds auscultated (no abnormalities explicitly noted) - Respiratory- Inspection conducted, focus on lung sounds Results - Labs: Normal blood count, electrolytes, renal function, liver function; normal hemoglobin A1c; cholesterol under control - Tests: Normal thyroid and vitamin D levels Plan The patient's impaired glucose tolerance is well-managed, but continued observation is necessary. Her hypercholesterolemia is responding well to Simvastatin. She must continue her prescribed regimen and ensure her LDL remains below 130 mg/dL. I urged her to improve her compliance with nicotine replacement therapy to aid in smoking cessation vital for COPD and overall health. A referral has been made for a stress test to investigate her chest pain occurrences further, ensuring proper cardiac clearance. Her mammogram and bone density are current; however, her colonoscopy is due, and coordination with a truck spotter is ongoing. Her management for anxiety with current medications remains unchanged. Patient was informed and verbally consented to the use of an ambient scribe for clinic note documentation during this visit. Discussion Notes I discussed the importance of adherence to current treatment regimens for her glucose intolerance and cholesterol levels. I reinforced the smoking cessation advice, noting the significant impact on overall health and COPD management. We reviewed the atypical nature of her chest pain and agreed on a cardiac stress test to rule out any cardiac pathology, given her risk profile. I confirmed that her recent lab work shows overall positive control of her conditions, providing a basis for continued treatment without alteration unless future results indicate otherwise. The need for a colonoscopy and coordination for such was also discussed. Furthermore, I advised the continuation of her current medication regime for generalized anxiety disorder and addressed the necessity for regular follow-ups to monitor her chronic conditions and preventive health screenings. Patient Instructions - Continue Simvastatin 5 mg daily as prescribed. - Use nicotine patches, but do not smoke concurrently. - Adhere to scheduled cardiac stress test. - Follow through with the referral for colonoscopy. - Continue the use of the inhaler and follow COPD management as prescribed. - Monitor any new or worsening symptoms and seek medical attention if chest pain increases or changes. - Maintain regular physical activity, such as walking the dog. - Keep hydrated and eat a balanced diet. - Avoid watching upsetting news if it triggers anxiety. Orders: Orders CA stress test Today R07.9 - Chest pain, unspecified Referrals Gastroenterology Referral D12.6 - Benign neoplasm of colon, unspecified
[2024-10-25 10:58] VITALS: BP 136/70
== END 2024-10-25 11:08 | disposition home or self-care (01) ==
LOC: HO.HMCH 10:10
PROVIDERS: PCP Internal Medicine; Visit Provider Internal Medicine
DX: D12.6 Benign neoplasm of colon, unspecified (principal); J43.9 Emphysema, unspecified; Z72.0 Tobacco use; R73.02 Impaired glucose tolerance (oral); E78.00 Pure hypercholesterolemia, unspecified; F41.1 Generalized anxiety disorder; R07.9 Chest pain, unspecified

== ENCOUNTER → 2024-10-25 10:10 | Outpatient (BNVA) | payer MEDICARE, MEDICAID, SELFPAY | PROVIDERS: PCP Internal Medicine; Visit Provider Internal Medicine | DX: D12.6 Benign neoplasm of colon, unspecified (principal); J43.9 Emphysema, unspecified; R73.02 Impaired glucose tolerance (oral); E78.00 Pure hypercholesterolemia, unspecified; F41.1 Generalized anxiety disorder; Z72.0 Tobacco use | CPT/HCPCS: 99212 ==

== ENCOUNTER 2024-11-23 13:37 | Outpatient (AMB) | payer MEDICARE, MEDICAID, SELFPAY ==
--- NOTE | 2024-11-23 13:48 | A.OFFPC_ITS ---
Vital Signs 11/23/24 13:49 Height 5 ft 6 in Weight 170 lb 8 oz BMI 27.5 BP 110/68 Blood Pressure Location Lt brachial Position Sitting Pulse 82 Pulse Source Pulse Oximeter Temp 96.9 F Temp Source Temporal Artery Scan Pulse Oximetry (%) 98 Oxygen Delivery Method Room Air Intake Visit Reasons: numbness on her leg Intake Note: Patient is here to follow up on Numbness of right leg. Body Trimmer Upholsterer Required: No Pure Culture Operator: Not Required per policy Accompanied by: Self / Same As Patient Allergies No Known Allergies [No Known Allergies*] Allergy (Verified 11/23/24 13:49) Tobacco use date assessed: 11/23/24 Fall risk assessment: No Falls in past year Last assessed Fall Risk: 11/23/24 Dental Screening Dental Screen Date: 07/24/24 (dentures ) [facility] Medical History (Updated 11/23/24 @ 14:14 by Leonardo Goldberg MD) Mononeuritis lower 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 Personal history of nicotine dependence Annual physical exam Herniation of intervertebral disc between L5 and S1 Trigeminal neuralgia Hemiplegic migraine Hypercholesterolemia Anxiety and depression Alcohol abuse History of hepatitis C Surgical History History of hemorrhoidectomy Family History Father Medical history unknown Mother Chronic mental illness Social History Housing: House Alcohol intake: former Patient Tobacco Use Status: Current everyday Tobacco user Tobacco use type: Cigarette Cigarette Packs Per Day: 0.25 Cigarettes Per Day: 3 Years Smoked: 42 (onset 22) Packs Per Year: 0 Packs per year/per ci.00 e-Cigarette/Vaping Use: Never Used Second Hand Smoke Exposure: Yes Substance Use Type: Marijuana Advance Directives Date on File: 04/08/20 service: No Current occupational status: retired Cognitive needs: No Hearing needs: No Vision needs: Yes Questionnaire PHQ-9 Over the last 2 weeks, how often have you been bothered by any of the following problems? 1. Little interest or pleasure in doing things: nearly every day 2. Feeling down, depressed, or hopeless: not at all 3. Trouble falling or staying asleep, or sleeping too much: not at all 4. Feeling tired or having little energy: not at all 5. Poor appetite or overeating: not at all 6. Feeling bad about yourself - or that you are a failure or have let yourself or your family down: not at all 7. Trouble concentrating on things, such as reading the newspaper or watching television: not at all 8. Moving or speaking so slowly that other people could have noticed. Or the opposite - being so fidgety or restless that you have been moving around a lot more than usual: not at all 9. Thoughts that you would be better off or of hurting yourself in some way: not at all Total score: 3 Depression Screening Interpretation: Positive Depression Screening Done: Yes Source: Developed by Drs. Abner Harrison, Kasia Benitez, Dejon Stevenson and colleagues, with an educational josephine from [employer]. Thrive Questionnaire Date Thrive assessed: 11/23/24 I am a: Patient KVNG-7 AMB Questionnaire KVNG-7 Date KVNG - 7 assessed: 07/24/24 Source: Developed by Drs. Abner Harrison, Kasia Benitez, Dejon Stveenson and colleagues, with an educational josephine from [employer]. Physical exam (Primary Care) Vital Signs: Last Vital Signs Temp 96.9 F 11/23/24 13:49 Pulse 82 11/23/24 13:49 BP 110/68 11/23/24 13:49 Pulse Ox 98 11/23/24 13:49 Oxygen Delivery Method Room Air 11/23/24 13:49 BMI result Body Mass Index 27.5 Tobacco/Smoking Status: Tobacco use Status Tobacco use date assessed 11/23/24 11/23/24 13:54 Patient Tobacco Use Status Current everyday Tobacco 11/23/24 13:54 Tobacco use type Cigarette 11/23/24 13:54 e-Cigarette/Vaping Use Never Used 11/23/24 13:54 PHQ-9: PHQ-9 Score PHQ-9: Total score 3 11/23/24 13:54 Depression Screening Interpretation: Positive Thrive Assessment: Date of Thrive Assessment Date Thrive assessed 11/23/24 11/23/24 13:54 Coding Level of Care Code Est Pt Level 4 (70046) Complex EM visit Add On G2211 Diagnoses Mononeuritis lower limb G57.90 Assessment & Plan Assessment & Plan (1) Mononeuritis lower limb: Code(s): G57.90 - Unspecified mononeuropathy of unspecified lower limb Category: Medical Plan: Observation for two weeks. Superficial compression of sensory nerve, no motor deficits Plan History of Present Illness The patient is a 69-year-old female presenting with numbness in the right leg, which began about three weeks prior to the visit. The numbness initially manifested as a localized patch but has since expanded toward the knee over two weeks. During the conversation, the patient expressed concern regarding a potential blood clot. The numbness is objectively distinct upon palpation compared to the left leg, and no other factors seem to influence its presentation, such as activity or temperature changes when showering. The patient maintains her stability in walking and balance, denying any incidents of shortness of breath. She is not known to have diabetes, and her past laboratory evaluations have come back within normal limits. Her current medications include Wellbutrin, clonidine, and Seroquel, with no adjustments or new medications in her regimen. She reported a recent increase in body weight, but no dietary or l ifestyle changes were acknowledged. Social History - The patient is a recovering alcoholic and takes clonidine for anxiety management related to her past alcohol dependence. - No changes in daily activity or dietary habits were reported despite recent weight gain. - The patient keeps active in day-to-day living and has a pet dog she regularly cares for. Review of Systems - Musculoskeletal: Reports numbness in the right leg; denies difficulty with ambulation. - Respiratory: Denies shortness of breath. - Neurological: Denies tingling in toes or further distally from mid-leg. Physical Exam General: Cooperative and healthy appearing Nutritional Appearance: Well nourished Orientation/consciousness: Patient oriented x3 Limitations: No limitations Head: Normal to inspection General: Appearance normal, both eyes and all related structures Neck: Normal visual inspection Chest: Normal palpation of entire chest wall Respiratory: N ormal respiratory effort Neurology: Patient oriented x3, sensory loss in the right leg from the upper thigh to the knee, no motor loss, balance and reflexes intact. Results Plan 1. Sensory Neuropathy Of The Right Leg - Monitor symptoms over two weeks to evaluate changes. - Schedule follow-up visit for reassessment of symptoms and determination of the need for further testing or intervention. 2. Alcohol Dependence In Remission - Maintain current therapy with clonidine. - Support ongoing sobriety efforts through recommended activities or support groups. Discussion Notes I discussed the current numbness in the right leg with Ms. Elizalde, reassuring her that the absence of motor loss and balance issues are positive signs. We agreed to monitor the situation over the next two weeks, with a follow-up appointment to assess any changes or progression in symptoms. I explained that minor nerve compression could occasionally cause such sensory changes temporarily. If there is a persistence or worsening of symptoms after t he follow-up, further diagnostic testing might be considered. It was reiterated that her medications are stable, and no adjustments are needed. I acknowledged her concern about the possibility of a blood clot, providing reassurance based on the current presentation. Patient Instructions - Monitor any changes in numbness or new symptoms in your leg. - Attend your follow-up appointment in two weeks to re-evaluate the condition. - Continue your current medications as prescribed. - Stay vigilant about any changes that might indicate worsening of symptoms and report these for earlier evaluation.
[2024-11-23 13:49] VITALS: BP 110/68; PULSE 82; TEMP 36.1; O2SAT 98; BMI 27.5
== END 2024-11-23 14:17 | disposition home or self-care (01) ==
LOC: HO.HMCH 13:37
PROVIDERS: PCP Internal Medicine; Visit Provider Internal Medicine
DX: G57.90 Unspecified mononeuropathy of unspecified lower limb (principal)

== ENCOUNTER → 2024-11-23 13:37 | Outpatient (BNVA) | payer MEDICARE, MEDICAID, SELFPAY | PROVIDERS: PCP Internal Medicine; Visit Provider Internal Medicine | DX: G57.91 Unspecified mononeuropathy of right lower limb (principal) | CPT/HCPCS: 99212 ==

== ENCOUNTER 2024-12-14 13:47 | Outpatient (AMB) | payer MEDICARE, MEDICAID, SELFPAY ==
--- NOTE | 2024-12-14 13:52 | A.OFFPC_ITS ---
Vital Signs 12/14/24 13:53 Height 5 ft 6 in Weight 167 lb 2 oz BMI 27.0 BP 122/78 Blood Pressure Location Lt brachial Position Sitting Pulse 72 Pulse Source Pulse Oximeter Pulse Oximetry (%) 96 Oxygen Delivery Method Room Air Intake Visit Reasons: follow up Regulator Operator Required: No Accompanied by: Self / Same As Patient Allergies No Known Allergies [No Known Allergies*] Allergy (Verified 12/14/24 14:11) Medication List - Last Reconciled 12/14/24 by Yarelis Bacon PA-C acyclovir 5% (Zovirax) 1 appl topical 6XD 7 days albuterol sulfate 90 mcg/actuation 2 puffs inhalation Q6H PRN alendronate (Fosamax) 70 mg PO QWEEK 30 days baclofen 10 mg PO BID 90 days budesonide-formoterol 160-4.5 mcg/actuation (Symbicort) 2 puffs inhalation Q12H bupropion HCl orally; take 2 tablets in the morning and 1 tablet in the evening clonidine HCl 0.2 mg PO TID PRN 90 days lactulose 20 grams (30 mL) PO BID quetiapine (Seroquel) 200 mg (2 x 100 mg) PO BEDTIME 90 days sennosides-docusate sodium 8.6-50 mg (Senna with Docusate Sodium) 2 tab-caps (2 x 8.6-50 mg) PO BEDTIME simvastatin 5 mg PO BEDTIME 30 days Tobacco use date assessed: 12/14/24 Fall risk assessment: No Falls in past year Last assessed Fall Risk: 12/14/24 Dental Screening Dental Screen Date: 12/14/24 (dentures ) Did you have a dental visit in the last 12 months?: No Did you have a dental problem in the last 6 months where you did not have access to dental care?: No Was dental information given to patient?: No HPI follow up HPI Details The patient is a 69-year-old female presenting with numbness in the right leg. The numbness began approximately four weeks ago, progressing from the middle of the thigh to the kneecap. Initially, she considered it might be due to sleeping positions affecting circulation. She denies numbness or tingling in the arms, facial numbness, confusion, headaches, or dizziness. She has a history of back problems but no imaging has been done. Knee pain is reported, attributed to increased walking due to a new dog. The patient engages in regular physical activity, walking her dog twice daily for about a mile and a half each time. She has not experienced falls or weakness. 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 Personal history of nicotine dependence Annual physical exam Herniation of intervertebral disc between L5 and S1 Trigeminal neuralgia Hemiplegic migraine Hypercholesterolemia Anxiety and depression Alcohol abuse History of hepatitis C Surgical History History of hemorrhoidectomy Family History Father Medical history unknown Mother Chronic mental illness Social History Housing: House Alcohol intake: former Patient Tobacco Use Status: Current everyday Tobacco user Tobacco use type: Cigarette Cigarette Packs Per Day: 0.25 Cigarettes Per Day: 3 Years Smoked: 42 (onset 22) Packs Per Year: 0 Packs per year/per ci.00 e-Cigarette/Vaping Use: Never Used Second Hand Smoke Exposure: Yes Substance Use Type: Marijuana Advance Directives Date on File: 04/08/20 service: No Current occupational status: retired Cognitive needs: No Hearing needs: No Vision needs: Yes Questionnaire PHQ-9 Over the last 2 weeks, how often have you been bothered by any of the following problems? 1. Little interest or pleasure in doing things: nearly every day 2. Feeling down, depressed, or hopeless: not at all 3. Trouble falling or staying asleep, or sleeping too much: not at all 4. Feeling tired or having little energy: not at all 5. Poor appetite or overeating: not at all 6. Feeling bad about yourself - or that you are a failure or have let yourself or your family down: not at all 7. Trouble concentrating on things, such as reading the newspaper or watching television: not at all 8. Moving or speaking so slowly that other people could have noticed. Or the opposite - being so fidgety or restless that you have been moving around a lot more than usual: not at all 9. Thoughts that you would be better off or of hurting yourself in some way: not at all Total score: 3 Depression Screening Interpretation: Positive Depression Screening Follow-up: Existing condition and In treatment Depression Screening Done: Yes 11204 - PHQ-9 Billing: Yes Source: Developed by Drs. Abner Harrison, Kasia Benitez, Dejon Stevenson and colleagues, with an educational josephine from [employer] Thrive Questionnaire Date Thrive assessed: 12/14/24 I am a: Patient What is your living situation today?: I have a steady place to live Within the past 12 months, did the food you bought not last and you didn't have the money to get more?: Never true Within the past 12 months, did you worry whether your food would run out before you got money to buy more?: Never true Do you have trouble paying for medicines?: No Do you have trouble getting transportation to medical appointments?: No Do you have trouble paying your heating and electricity bill?: No Do you have trouble taking care of your child, family member or friend?: No Do you have trouble with day-to-day activities such as bathing, preparing meals, shopping, managing finances, etc.?: No Are you currently unemployed and looking for a job?: No Are you interested in more education?: No Please select the resources that you would like help with: None Currently or been in a relationship where the following occur: No concerns reported THRIVE Score: 0 AUDIT C Alcohol Use Questionnaire (AUDIT-C) 1. How often do you have a drink containing alcohol?: Monthly or less 2. How many drinks containing alcohol do you have on a typical day when you are drinking?: 1 or 2 3. How often do you have six or more drinks on one occasion?: Never Total Score: 1 Score Reviewed/Action Taken: No KVNG-7 AMB Questionnaire KVNG-7 Date KVNG - 7 assessed: 12/14/24 Feeling nervous, anxious, or on edge: 0 = Not at all Not being able to stop or control worryin = Not at all Worrying too much about different things: 0 = Not at all Trouble relaxin = Not at all Being so restless that it is hard to sit still: 0 = Not at all Becoming easily annoyed or irritable: 0 = Not at all Feeling afraid as if something awful might happen: 0 = Not at all Total KVNG-7 score (0-4 normal; 5-9 mild; 10-14 moderate; 15-21 severe): 0 Source: Developed by Drs. Abner Harrison, Kasia Benitez, Dejon Stevenson and colleagues, with an educational josephine from [employer] KVNG-7 Assessment Billing KVNG-7 Assessment Tool: KVNG-7 Assessment 61358 Review of Systems Const Details: - Neurological: Reports numbness in the right leg for four weeks. Denies numbness or tingling in arms, facial numbness, confusion, headaches, or dizziness. - Musculoskeletal: Reports knee pain. Denies hip pain, back pain, or weakness. Physical exam (Primary Care) Vital Signs: Last Vital Signs Pulse 72 12/14/24 13:53 BP 122/78 12/14/24 13:53 Pulse Ox 96 12/14/24 13:53 Oxygen Delivery Method Room Air 12/14/24 13:53 BMI result Body Mass Index 27.0 Tobacco/Smoking Status: Tobacco use Status Tobacco use date assessed 12/14/24 12/14/24 13:57 Patient Tobacco Use Status Current everyday Tobacco 12/14/24 13:57 Tobacco use type Cigarette 12/14/24 13:57 e-Cigarette/Vaping Use Never Used 12/14/24 13:57 PHQ-9: PHQ-9 Score PHQ-9: Total score 3 12/14/24 14:14 Depression Screening Interpretation: Positive Depression Screening Follow-up: Existing condition and In treatment Thrive Assessment: Date of Thrive Assessment Date Thrive assessed 12/14/24 12/14/24 13:57 Currently or been in a relationship where the following occur: No concerns reported Const Other: Appearance: Alert. Oriented X3. No acute distress. Head: Normal external exam. Normocephalic. Atraumatic. Eyes: Pupils are equal, round, and reactive to light. Extraocular movements intact. Conjunctiva and sclera normal. Eyelids normal. Throat: Pharynx normal. Uvula midline. Moist mucous membranes. Neck: Normal inspection. Neck supple. Full range of motion. Cardiovascular: Normal heart rate and rhythm. Respiratory: No respiratory distress. Painless inspiration. Abdomen: Soft and nontender. Bowel sounds normal in all 4 quadrants. No distention noted. No organomegaly noted. No visible injury noted. Back: No costovertebral angle tenderness. Full range of motion noted. History of back problems, including a torn annulus in 1999. Skin: Skin warm and dry. Normal skin color. Normal skin turgor. No rashes/lesions/lacerations noted. Extremities: Right leg numbness from mid-thigh to kneecap, no knee pain currently, but history of knee pain. Is all other extremities exhibit normal range of motion nontender. Patient does not have any abnormalities to the lumbar spine, hip, knee, ankle or foot joint of the right side. There is no obvious weakness. No rashes or signs of infection. No lower extremity edema or calf tenderness is noted. On my exam she does have sensation although she reports it feels different. Neuro: Oriented X 3. No motor deficit. No sensory deficit in arms or face. Reflexes normal. Right leg numbness noted, feels like it's asleep but without tingling. No confusion, headaches, or dizziness. No stroke-like symptoms. Coding Level of Care Code Est Pt Level 4 (69427) Diagnoses Right knee pain M25.561 Right leg numbness R20.0 Additional Codes KVNG-7 Assessment Billing - KVNG-7 Assessment Tool: KVNG-7 Assessment 87292 ([id number]) PHQ-9 - 55552 - PHQ-9 Billing: Yes ([id number]) Assessment & Plan Assessment & Plan (1) Right knee pain: Code(s): M25.561 - Pain in right knee Category: Medical Plan: The plan involves obtaining x-rays of the right knee to assess for any underlying pathology. Referral to orthopedics is also included for further evaluation. (2) Right leg numbness: Code(s): R20.0 - Anesthesia of skin Category: Medical Plan: The plan includes obtaining x-rays of the right hip, pelvis, and knee to rule out any structural abnormalities that might be causing nerve compression. A referral to orthopedics is also planned for further evaluation and management. Plan Plan Patient was informed and verbally consented to the use of an ambient scribe for clinic note documentation during this visit. 1. Numbness In The Right Leg The plan includes obtaining x-rays of the right hip, pelvis, and knee to rule out any structural abnormalities that might be causing nerve compression. A referral to orthopedics is also planned for further evaluation and management. 2. Knee Pain The plan involves obtaining x-rays of the right knee to assess for any underlying pathology. Referral to orthopedics is also included for further evaluation. I discussed with the patient the plan to obtain x-rays of the right hip, pelvis, and knee to evaluate for any structural causes of her symptoms. We also discussed referring her to orthopedics for further evaluation. I explained the importance of follow-up and advised her to contact us if she does not hear from the orthopedic office within a month. Orders: Orders XR knee RT 4V Today M25.561 - Pain in right knee, R20.0 - Anesthesia of skin XR hip RT w PEL1V Today M25.561 - Pain in right knee, R20.0 - Anesthesia of skin Referrals Orthopedics Referral G57.90 - Unspecified mononeuropathy of unspecified lower limb, M25.561 - Pain in right knee, R20.0 - Anesthesia of skin Patient Instructions: - Obtain x-rays of the right hip, pelvis, and knee as soon as possible. - Expect a call from the orthopedic office within a month; contact us if not received. - Monitor for any new symptoms such as droopiness, confusion, or slurred speech and seek immediate care if they occur.
[2024-12-14 13:53] VITALS: BP 122/78; PULSE 72; O2SAT 96; BMI 27.0
== END 2024-12-14 14:29 | disposition home or self-care (01) ==
LOC: HO.HMCH 13:47
PROVIDERS: PCP Internal Medicine; Visit Provider Physician Assistant Medical
DX: M25.561 Pain in right knee (principal); R20.0 Anesthesia of skin

== ENCOUNTER → 2024-12-14 13:47 | Outpatient (BNVA) | payer MEDICARE, MEDICAID, SELFPAY | PROVIDERS: PCP Internal Medicine; Visit Provider Physician Assistant Medical | DX: M25.561 Pain in right knee (principal); R20.0 Anesthesia of skin | CPT/HCPCS: 96127; 99212 ==

== ENCOUNTER 2024-12-25 09:16 | Outpatient (REF) | payer MEDICARE, MEDICAID, SELFPAY ==
--- NOTE | ~2024-12-25 | XR_ITS ---
CLINICAL HISTORY: M25.561 - Pain in right knee 4 view right knee Comparison: None provided Findings: No fractures or dislocations. No significant arthritic change or erosions. No joint effusion. No radiopaque foreign body. IMPRESSION: 1. No acute findings. This document has been electronically signed by: Xin Navarrete MD on 12/25/2024 16:24:26
--- NOTE | ~2024-12-25 | XR_ITS ---
CLINICAL HISTORY: R20.0 - Anesthesia of skin 3 view, pelvis and right hip Comparison: None provided Findings: No acute fracture or dislocation. Periarticular osteophyte formation at the bilateral hip joints. The soft tissues are unremarkable. IMPRESSION: No acute findings. This document has been electronically signed by: Xin Navarrete MD on 12/25/2024 16:27:10
== END 2024-12-25 09:17 | disposition home or self-care (01) ==
LOC: HO.XRAY 09:16
PROVIDERS: PCP Internal Medicine; Visit Provider Physician Assistant Medical
DX: M25.561 Pain in right knee (principal); R20.0 Anesthesia of skin
CPT/HCPCS: 73502; 73564

== ENCOUNTER → 2024-12-25 09:21 | Outpatient (BNV) | payer MEDICARE, MEDICAID, SELFPAY | PROVIDERS: PCP Internal Medicine; Visit Provider Radiology Diagnostic Radiology | DX: M25.561 Pain in right knee (principal); R20.0 Anesthesia of skin | CPT/HCPCS: 73502; 73564 ==

== ENCOUNTER 2025-01-26 07:11 | Outpatient (AMB) | payer MEDICARE, MEDICAID, SELFPAY ==
--- NOTE | 2025-01-26 07:13 | AM.OFFWIN_ITS ---
Intake Vital Signs 01/26/25 07:17 Height 5 ft 6 in Weight 167 lb BMI 27.0 BP 102/80 Blood Pressure Location Lt brachial Position Sitting Pulse 81 Pulse Source Pulse Oximeter Temp 98.0 F Temp Source Oral Pulse Oximetry (%) 96 Oxygen Delivery Method Room Air Intake Visit Reasons: EP Tick bite on RT foot Intake Note: pt presents with right lateral foot bruising after a tick bite Patient Tobacco Use Status: Current everyday Tobacco user Allergies No Known Allergies (No Known Allergies*) Allergy (Verified 01/26/25 07:18) Do you need a note to return to daycare/school/sports/work: No HPI HPI Comments History of Present Illness Details This is a 69-year-old female presenting for evaluation of a tick bite on her right foot. Patient states that she removed a tick from her right foot on Wednesday however has been picking at the lesion as she is concerned there may be residual tick imbedded in her right foot. Patient comes today because she noticed bruising around the site of the tick bite. Patient denies having any fevers, chills, rashes, other cutaneous lesions and has no personal history of Lyme disease. 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 Personal history of nicotine dependence Annual physical exam Herniation of intervertebral disc between L5 and S1 Trigeminal neuralgia Hemiplegic migraine Hypercholesterolemia Anxiety and depression Alcohol abuse History of hepatitis C Surgical History History of hemorrhoidectomy Family History Father Medical history unknown Mother Chronic mental illness Social History Housing: House Alcohol intake: former Patient Tobacco Use Status: Current everyday Tobacco user Tobacco use type: Cigarette Cigarette Packs Per Day: 0.25 Cigarettes Per Day: 3 Years Smoked: 42 (onset 22) e-Cigarette/Vaping Use: Never Used Second Hand Smoke Exposure: Yes Substance Use Type: Marijuana Advance Directives Date on File: 04/08/20 service: No Current occupational status: retired Cognitive needs: No Hearing needs: No Vision needs: Yes Review of Systems Const All systems reviewed & are unremarkable except as noted in HPI and below Denies chills, Denies fatigue and Denies fever(s) Eyes Reports no additional complaints ENT Reports no additional complaints Card Reports no additional complaints Resp Reports no additional complaints Reports no additional complaints Musc Reports no additional complaints Skin/Breast Reports lesions (right foot) Neuro Reports no additional complaints Psych Reports no additional complaints Endo Reports no additional complaints and Denies fatigue Aller/Immun Reports no additional complaints Physical Exam Vital Signs: Last Vital Signs Temp 98.0 F 01/26/25 07:17 Pulse 81 01/26/25 07:17 BP 102/80 01/26/25 07:17 Pulse Ox 96 01/26/25 07:17 Oxygen Delivery Method Room Air 01/26/25 07:17 BMI result Body Mass Index 27.0 Const General: cooperative, healthy appearing, comfortable, no acute distress, well developed, alert, awake and Physically active Nutritional Appearance: average body habitus Orientation/consciousness: patient oriented x3 Limitations: no limitations Skin Other: Mild excoriation with 2.5cm surrounding ecchymosis dorsal surface of the right foot overlying the 4th/5th metatarsals; no residual tick noted, no foreign body, no surrounding erythema or warmth to touch. No other cutaneous findings noted on trunk or extremities. Neuro General: patient oriented x3 Psych Appearance: grossly normal Mental Status: mental status grossly normal Insight: Good insight present (Psych) Judgement: Good judgement present (Psych) Assessment & Plan Assessment & Plan (1) Tick bite of right foot: Comment: There is no evidence of residual tick in the right foot and no clinical evidence of erythema migrans. Patient will be discharged home and is instructed to follow up with her primary care provider within 10-14 days to pursue tick-borne disease panel testing. Code(s): S90.861A - Insect bite (nonvenomous), right foot, initial encounter; W57.XXXA - Bitten or stung by nonvenomous insect and other nonvenomous arthropods, initial encounter Qualifiers: Encounter type: initial encounter Qualified Code(s): S90.861A - Insect bite (nonvenomous), right foot, initial encounter; W57.XXXA - Bitten or stung by nonvenomous insect and other nonvenomous arthropods, initial encounter Plan: Follow up with PCP in 10-14 days for tick-borne disease panel testing. Coding Level of Care Code Est Pt Level 3 (88668) Diagnoses Tick bite of right foot, initial encounter S90.861A; W57.XXXA Encounter type: initial encounter Time Spent (min) 20
[2025-01-26 07:17] VITALS: BP 102/80; PULSE 81; TEMP 36.7; O2SAT 96; BMI 27.0
== END 2025-01-26 08:09 | disposition home or self-care (01) ==
PROVIDERS: PCP Internal Medicine; Visit Provider Physician Assistant
DX: S90.861A Insect bite (nonvenomous), right foot, initial encounter (principal); W57.XXXA Bitten or stung by nonvenomous insect and other nonvenomous arthropods, initial encounter

== ENCOUNTER → 2025-01-26 07:11 | Outpatient (BNVA) | payer MEDICARE, MEDICAID, SELFPAY | PROVIDERS: PCP Internal Medicine; Visit Provider Physician Assistant | DX: S90.861A Insect bite (nonvenomous), right foot, initial encounter (principal); W57.XXXA Bitten or stung by nonvenomous insect and other nonvenomous arthropods, initial encounter | CPT/HCPCS: 99212 ==

== ENCOUNTER 2025-01-26 16:51 | Outpatient (AMB) | payer MEDICARE, MEDICAID, SELFPAY ==
--- NOTE | 2025-01-26 16:52 | MHC.PC.OV ---
Intake Visit Reasons: Tick bite Allergies No Known Allergies (No Known Allergies*) Allergy (Verified 01/26/25 16:52) Medication List - Last Reconciled 01/26/25 by Steph Velasquez MD albuterol sulfate 90 mcg/actuation 2 puffs inhalation Q6H PRN alendronate (Fosamax) 70 mg PO QWEEK 30 days baclofen 10 mg PO BID PRN budesonide-formoterol 160-4.5 mcg/actuation (Symbicort) 2 puffs inhalation Q12H bupropion HCl orally; take 2 tablets in the morning and 1 tablet in the evening clonidine HCl 0.2 mg PO TID PRN 90 days doxycycline hyclate 100 mg PO BID 10 days quetiapine (Seroquel) 200 mg (2 x 100 mg) PO BEDTIME 90 days sennosides-docusate sodium 8.6-50 mg (Senna with Docusate Sodium) 2 tab-caps (2 x 8.6-50 mg) PO BEDTIME simvastatin 5 mg PO BEDTIME 30 days Tobacco use date assessed: 12/14/24 Fall risk assessment: No Falls in past year Last assessed Fall Risk: 01/26/25 Dental Screening Dental Screen Date: 12/14/24 (dentures ) HPI Tick bite HPI Details 10 days ago tick bite went to [facility]- was advised blood work- thought tick out but 3 days ago - pulled it out [facility] Medical History (Updated 01/26/25 @ 17:01 by Steph Velasquez MD) Tick bite Right knee pain Right leg numbness Mononeuritis lower 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 Personal history of nicotine dependence Annual physical exam Herniation of intervertebral disc between L5 and S1 Trigeminal neuralgia Hemiplegic migraine Hypercholesterolemia Anxiety and depression Alcohol abuse History of hepatitis C Surgical History History of hemorrhoidectomy Family History Father Medical history unknown Mother Chronic mental illness Social History Housing: House Alcohol intake: former Patient Tobacco Use Status: Current everyday Tobacco user Tobacco use type: Cigarette Cigarette Packs Per Day: 0.25 Cigarettes Per Day: 3 Years Smoked: 42 (onset 22) Packs Per Year: 0 Packs per year/per ci.00 e-Cigarette/Vaping Use: Never Used Second Hand Smoke Exposure: Yes Substance Use Type: Marijuana Advance Directives Date on File: 04/08/20 service: No Current occupational status: retired Cognitive needs: No Hearing needs: No Vision needs: Yes Questionnaire Thrive Questionnaire Date Thrive assessed: 12/14/24 KVNG-7 AMB Questionnaire KVNG-7 Date KVNG - 7 assessed: 12/14/24 Source: Developed by Drs. Abner Harrison, Kasia Benitez, Dejon Stevenson and colleagues, with an educational josephine from [facility]. Physical exam (Primary Care) Tobacco/Smoking Status: Tobacco use Status Tobacco use date assessed 12/14/24 01/26/25 16:52 Patient Tobacco Use Status Current everyday Tobacco 01/26/25 16:52 Tobacco use type Cigarette 01/26/25 16:52 e-Cigarette/Vaping Use Never Used 01/26/25 16:52 Thrive Assessment: Date of Thrive Assessment Date Thrive assessed 12/14/24 01/26/25 16:52 Telehealth Telehealth Location of provider rendering services: practice address Location of patient: address on file Patient Identification confirmed using: Name, : Yes Telehealth method: voice only Patient verbally consented to treatment: Yes Patient verbally consented to billing insurance company: Yes Patient informed of any privacy concerns related to visit: Yes Minutes spent on Phone/Video with Pt.: 15 Coding Level of Care Code Tele Est Pt Level 3 (19558) Diagnoses Tick bite of right foot, initial encounter S90.861A; W57.XXXA Encounter type: initial encounter Assessment & Plan Assessment & Plan (1) Tick bite of right foot: Comment: There is no evidence of residual tick in the right foot and no clinical evidence of erythema migrans. Patient will be discharged home and is instructed to follow up with her primary care provider within 10-14 days to pursue tick-borne disease panel testing. Code(s): S90.861A - Insect bite (nonvenomous), right foot, initial encounter; W57.XXXA - Bitten or stung by nonvenomous insect and other nonvenomous arthropods, initial encounter Category: Medical Qualifiers: Encounter type: initial encounter Qualified Code(s): S90.861A - Insect bite (nonvenomous), right foot, initial encounter; W57.XXXA - Bitten or stung by nonvenomous insect and other nonvenomous arthropods, initial encounter Plan History of Present Illness The patient is a 69-year-old female presenting with a tick bite and associated erythema migrans. The patient reports being bitten by a tick approximately 7 to 10 days ago. She initially thought she had removed the tick but discovered it was still attached three days ago, at which point she removed it. Currently, she has a bull's eye rash on her right foot, approximately two inches below the baby toe, which is bruised and red around the site of the bite. The patient has a history of hypercholesterolemia and osteoporosis, with the last bone density test conducted in May 2023. She also has a history of Chronic Obstructive Pulmonary Disease (COPD) and is a smoker. Previous knee pain was evaluated with x-rays, which were negative, but early signs of osteoarthritis were noted. Recent blood work in September 2024 showed normal blood count, electrolytes, and renal function, with mildly elevated blood sugar but normal hemoglobin A1c. Vitamin D, folic acid, and thyroid levels were normal, and a Lyme test in April 2024 was negative. Review of Systems - Integumentary: Reports erythema migrans on the right foot. - Musculoskeletal: Reports knee pain previously evaluated with x-rays. - Respiratory: Reports history of smoking and COPD. Plan The patient will be prescribed an antibiotic to address the tick bite and associated erythema migrans, as a precaution against potential Lyme disease. A Lyme disease test will be ordered, and the patient is advised to have the lab work done as soon as possible. The patient is instructed to take the antibiotic twice daily for seven days and to follow up with lab work early next week. Patient was informed and verbally consented to the use of an ambient scribe for clinic note documentation during this visit. Discussion Notes I discussed with the patient the importance of starting an antibiotic to prevent Lyme disease due to the presence of erythema migrans following a tick bite. We also talked about the need for a Lyme disease test and the importance of completing the lab work promptly. The patient was informed about the dosage and duration of the antibiotic treatment and advised to follow up with lab work early next week. Patient Instructions - Take the prescribed antibiotic twice daily for seven days. - Complete the Lyme disease test as soon as possible. - Follow up with lab work early next week. Orders: Orders Lyme IgG/IgM w/reflex to WB Today S90.861A - Insect bite (nonvenomous), right foot, initial encounter, W57.XXXA - Bitten or stung by nonvenomous insect and other nonvenomous arthropods, initial encounter Medications: New doxycycline hyclate 100 mg PO BID 14 caps 0RF S90.861A - Insect bite (nonvenomous), right foot, initial encounter, W57.XXXA - Bitten or stung by nonvenomous insect and other nonvenomous arthropods, initial encounter doxycycline hyclate 100 mg PO BID 20 caps 0RF 10 days S90.861A - Insect bite (nonvenomous), right foot, initial encounter, W57.XXXA - Bitten or stung by nonvenomous insect and other nonvenomous arthropods, initial encounter
== END 2025-01-26 17:26 | disposition home or self-care (01) ==
LOC: HO.HMCH 16:51
PROVIDERS: PCP Internal Medicine; Visit Provider Internal Medicine
DX: S90.861A Insect bite (nonvenomous), right foot, initial encounter (principal); W57.XXXA Bitten or stung by nonvenomous insect and other nonvenomous arthropods, initial encounter

== ENCOUNTER 2025-02-06 07:39 | Outpatient (REF) | payer MEDICARE, MEDICAID, SELFPAY ==
[2025-02-07 04:32] LABS: Lyme Abs Screen <0.90 index
== END 2025-02-06 07:40 | disposition home or self-care (01) ==
LOC: HO.10HDL 07:39
PROVIDERS: Visit Provider Internal Medicine
DX: S90.861A Insect bite (nonvenomous), right foot, initial encounter (principal); W57.XXXA Bitten or stung by nonvenomous insect and other nonvenomous arthropods, initial encounter; Y93.9 Activity, unspecified; Y92.9 Unspecified place or not applicable; Y99.9 Unspecified external cause status
CPT/HCPCS: 36415; 86617; 86618

== ENCOUNTER 2025-02-21 08:56 | Outpatient (AMB) | payer MEDICARE, MEDICAID, SELFPAY ==
[2025-02-21 09:04] VITALS: BP 122/76; PULSE 90; RESP 16; TEMP 36.2; O2SAT 97; BMI 27.1
--- NOTE | 2025-02-21 09:04 | A.OFFPC_ITS ---
Vital Signs 02/21/25 09:04 Height 5 ft 6 in Weight 168 lb BMI 27.1 BP 122/76 Blood Pressure Location Lt brachial Position Sitting Respiration 16 Pulse 90 Pulse Source Pulse Oximeter Temp 97.1 F Temp Source Temporal Artery Scan Pulse Oximetry (%) 97 Oxygen Delivery Method Room Air Intake Visit Reasons: 3 month f/u Allergies No Known Allergies (No Known Allergies*) Allergy (Verified 02/21/25 09:07) Tobacco use date assessed: 02/21/25 Fall risk assessment: No Falls in past year Last assessed Fall Risk: 02/21/25 Dental Screening Dental Screen Date: 02/21/25 (dentures ) Did you have a dental visit in the last 12 months?: No Did you have a dental problem in the last 6 months where you did not have access to dental care?: No Was dental information given to patient?: Patient declined [facility] Medical History Tick bite Right knee pain Right leg numbness Mononeuritis lower 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 Personal history of nicotine dependence Annual physical exam Herniation of intervertebral disc between L5 and S1 Trigeminal neuralgia Hemiplegic migraine Hypercholesterolemia Anxiety and depression Alcohol abuse History of hepatitis C Surgical History History of hemorrhoidectomy Family History Father Medical history unknown Mother Chronic mental illness Social History Housing: House Alcohol intake: former Patient Tobacco Use Status: Current everyday Tobacco user Tobacco use type: Cigarette Cigarette Packs Per Day: 0.25 Cigarettes Per Day: 3 Years Smoked: 42 (onset 22) e-Cigarette/Vaping Use: Never Used Second Hand Smoke Exposure: Yes Substance Use Type: Marijuana Advance Directives Date on File: 04/08/20 service: No Current occupational status: retired Cognitive needs: No Hearing needs: No Vision needs: Yes Questionnaire PHQ-9 Over the last 2 weeks, how often have you been bothered by any of the following problems? 1. Little interest or pleasure in doing things: nearly every day 2. Feeling down, depressed, or hopeless: not at all 3. Trouble falling or staying asleep, or sleeping too much: not at all 4. Feeling tired or having little energy: not at all 5. Poor appetite or overeating: not at all 6. Feeling bad about yourself - or that you are a failure or have let yourself or your family down: not at all 7. Trouble concentrating on things, such as reading the newspaper or watching television: not at all 8. Moving or speaking so slowly that other people could have noticed. Or the opposite - being so fidgety or restless that you have been moving around a lot more than usual: not at all 9. Thoughts that you would be better off or of hurting yourself in some way: not at all Total score: 3 Depression Screening Interpretation: Positive Depression Screening Follow-up: Existing condition and In treatment Depression Screening Done: Yes Source: Developed by Drs. Abner Harrison, Kasia Benitez, Dejon Stevenson and colleagues, with an educational josephine from [facility] [employer]. Thrive Questionnaire Date Thrive assessed: 11/23/24 What is your living situation today?: I have a steady place to live Within the past 12 months, did the food you bought not last and you didn't have the money to get more?: Sometimes True Within the past 12 months, did you worry whether your food would run out before you got money to buy more?: Sometimes True Do you have trouble paying for medicines?: No Do you have trouble getting transportation to medical appointments?: No Do you have trouble paying your heating and electricity bill?: I choose not to answer this question Do you have trouble taking care of your child, family member or friend?: No Do you have trouble with day-to-day activities such as bathing, preparing meals, shopping, managing finances, etc.?: No Are you currently unemployed and looking for a job?: No Are you interested in more education?: No Please select the resources that you would like help with: Food Currently or been in a relationship where the following occur: No concerns reported THRIVE Score: 2 AUDIT C Alcohol Use Questionnaire (AUDIT-C) 1. How often do you have a drink containing alcohol?: Never 3. How often do you have six or more drinks on one occasion?: Never Total Score: 0 KVNG-7 AMB Questionnaire KVNG-7 Date KVNG - 7 assessed: 06/12/25 Feeling nervous, anxious, or on edge: 1 = Several days Not being able to stop or control worryin = Not at all Worrying too much about different things: 1 = Several days Trouble relaxin = Several days Being so restless that it is hard to sit still: 0 = Not at all Becoming easily annoyed or irritable: 0 = Not at all Feeling afraid as if something awful might happen: 0 = Not at all Total KVNG-7 score (0-4 normal; 5-9 mild; 10-14 moderate; 15-21 severe): 3 Source: Developed by Drs. Abner Harrison, Kasia Benitez, Dejon Stevenson and colleagues, with an educational josephine from [facility]. Physical exam (Primary Care) Vital Signs: Last Vital Signs Temp 97.1 F 02/21/25 09:04 Pulse 90 02/21/25 09:04 Resp 16 02/21/25 09:04 BP 122/76 02/21/25 09:04 Pulse Ox 97 02/21/25 09:04 Oxygen Delivery Method Room Air 02/21/25 09:04 BMI result Body Mass Index 27.1 Tobacco/Smoking Status: Tobacco use Status Tobacco use date assessed 02/21/25 02/21/25 09:08 Patient Tobacco Use Status Current everyday Tobacco 02/21/25 09:08 Tobacco use type Cigarette 02/21/25 09:08 e-Cigarette/Vaping Use Never Used 02/21/25 09:08 PHQ-9: PHQ-9 Score PHQ-9: Total score 3 02/21/25 09:08 Depression Screening Interpretation: Positive Depression Screening Follow-up: Existing condition and In treatment Thrive Assessment: Date of Thrive Assessment Date Thrive assessed 11/23/24 02/21/25 09:08 Currently or been in a relationship where the following occur: No concerns reported Const General: alert; No acute distress Eyes Conjunctivae: conjunctivae normal Resp Auscultation: clear to auscultation bilaterally Cardio Rate: regular rate Rhythm: regular rhythm GI Inspection: Yes normal to inspection Extrem General: Yes normal to inspection and No edema Coding Level of Care Code Est Pt Level 4 (28767) Complex EM visit Add On G2211 Diagnoses Impaired glucose tolerance R73.02 Hypercholesterolemia E78.00 Generalized anxiety disorder F41.1 Tubular adenoma of colon D12.6 Emphysema lung J43.9 Tobacco abuse Z72.0 Osteoporosis M81.0 Basal cell carcinoma C44.91 Assessment & Plan Assessment & Plan (1) Impaired glucose tolerance: Code(s): R73.02 - Impaired glucose tolerance (oral) Category: Medical Plan: Decrease the amount of carbohydrate intake, pasta, bread, rice and potatoes are all sugar and that is aside from all the sweet stuff, remember that fruits are good but they are Sweet also. (2) Hypercholesterolemia: Code(s): E78.00 - Pure hypercholesterolemia, unspecified Category: Medical Plan: Avoid fried foods, chicken skin, eggs, butter margarine, pastries and meat. 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 Continue with albuterol inhaler and Symbicort (6) Tobacco abuse: Comment: 08/24/2022 lung cancer screening Code(s): Z72.0 - Tobacco use Category: Medical Plan: Patient is strongly advised to stop smoking! (7) Osteoporosis: Comment: April 2020May 2023 Code(s): M81.0 - Age-related osteoporosis without current pathological fracture Category: Medical Plan: Discussed about calcium and vitamin-D. On alendronate. Repeat bone density end of the year (8) Basal cell carcinoma: Comment: 2024 Dr. Mittal Code(s): C44.91 - Basal cell carcinoma of skin, unspecified Category: Medical Plan History of Present Illness The patient is a 69-year-old female presenting for a follow-up visit after a tick bite and to manage chronic conditions. She has a history of hypercholesterolemia and impaired glucose tolerance, which have been managed with lifestyle modifications and medication. Her last blood work in September showed normal blood count, electrolytes, renal function, and liver function, with a blood sugar level of 100 mg/dL and a normal hemoglobin A1c. Cholesterol levels were reported to be well-controlled. The patient also has a history of generalized anxiety disorder, for which she is taking Wellbutrin. She is a smoker and has been diagnosed with chronic obstructive pulmonary disease (COPD), managed with albuterol inhaler and Symbicort. She has been strongly advised to stop smoking. In 2018, the patient had a colonoscopy that revealed a tubular adenoma, and she is due for a repeat colonoscopy. She was last seen in January for a tick bite and was treated with antibiotics. Health Maintenance - Colonoscopy reminder for tubular adenoma follow-up - Smoking cessation strongly advised - Discussion about calcium and vitamin D supplementation - On alendronate for bone health - Bone density test planned for end of the year Social History - Smoker with chronic obstructive pulmonary disease (COPD) Review of Systems Physical Exam Results - Labs: Normal blood count, electrolytes, renal function, liver function, blood sugar 100 mg/dL, normal hemoglobin A1c, well-controlled cholesterol levels - Imaging: Hip and knee x-rays in December were negative Plan The patient will continue with simvastatin 5 mg daily to manage hypercholesterolemia, aiming for an LDL goal of less than 130 mg/dL and triglycerides less than 150 mg/dL. She is advised to maintain her current regimen of Wellbutrin for anxiety management. Smoking cessation is strongly recommended, and she should continue using her albuterol inhaler and Symbicort for COPD management. A colonoscopy is recommended for follow-up on the tubular adenoma identified in 2019. The patient is also advised to continue with calcium and vitamin D supplementation and is currently on alendronate for bone health, with a bone density test planned for the end of the year. Patient was informed and verbally consented to the use of an ambient scribe for clinic note documentation during this visit. Discussion Notes During the visit, I discussed the importance of managing hypercholesterolemia with simvastatin and maintaining anxiety control with Wellbutrin. I emphasized the need for smoking cessation to improve COPD outcomes and advised the continuation of inhalers. We also reviewed the necessity of a follow-up colonoscopy and the benefits of calcium and vitamin D supplementation for bone health. Patient Instructions - Continue taking simvastatin 5 mg daily. - Maintain Wellbutrin regimen for anxiety. - Stop smoking immediately. - Use albuterol inhaler and Symbicort as prescribed. - Schedule a colonoscopy for tubular adenoma follow-up. - Continue calcium and vitamin D supplements. - Plan for a bone density test by the end of the year. Orders: Referrals Gastroenterology Referral D12.6 - Benign neoplasm of colon, unspecified Medications: New ipratropium-albuterol 20-100 mcg/actuation (Combivent Respimat) space evenly during waking hours 1 puff inhalation QID 4 grams 1RF J43.9 - Emphysema, unspecified Discontinued albuterol sulfate 90 mcg/actuation Discontinued Reason: Doctor's Order 2 puffs inhalation Q6H PRN 8.5 grams 2RF for wheezing R06.02 - Shortness of breath
== END 2025-02-21 11:54 | disposition home or self-care (01) ==
LOC: HO.HMCH 08:56
PROVIDERS: PCP Internal Medicine; Visit Provider Internal Medicine
DX: R73.02 Impaired glucose tolerance (oral) (principal); J43.9 Emphysema, unspecified; E78.00 Pure hypercholesterolemia, unspecified; F41.1 Generalized anxiety disorder; D12.6 Benign neoplasm of colon, unspecified; Z72.0 Tobacco use; M81.0 Age-related osteoporosis without current pathological fracture; C44.91 Basal cell carcinoma of skin, unspecified

== ENCOUNTER → 2025-02-21 08:56 | Outpatient (BNVA) | payer MEDICARE, MEDICAID, SELFPAY | PROVIDERS: PCP Internal Medicine; Visit Provider Internal Medicine | DX: R73.02 Impaired glucose tolerance (oral) (principal); E78.00 Pure hypercholesterolemia, unspecified; F41.1 Generalized anxiety disorder; D12.6 Benign neoplasm of colon, unspecified; J43.9 Emphysema, unspecified; M81.0 Age-related osteoporosis without current pathological fracture; C44.91 Basal cell carcinoma of skin, unspecified | CPT/HCPCS: 99212 ==

== ENCOUNTER 2025-03-17 13:00 | Inpatient (IN) | payer MEDICARE, OTHER, SELFPAY ==
[2025-03-17] VITALS (7 sets, daily range): BP systolic 113–173; BP diastolic 46–66; PULSE 64–109; RESP 14–18; TEMP 36.3–36.9; O2SAT 94–99; BMI 29.4
--- NOTE | ~2025-03-17 | CT_ITS ---
CLINICAL HISTORY: Stroke Protocol CT angiography head and neck with contrast. 3D Postprocessing. Comparison: CT/REG/SR - CT HEAD FOR STROKE - 03/17/25 13:05 EDT Findings: Aortic arch and cervical great vessels are patent with no aneurysm, dissection, hemodynamically significant stenoses, or occlusion. Intracranial arteries are patent. No aneurysm, dissection, hemodynamically significant stenoses, or occlusion. No abnormal intracranial enhancement. 7 mm nodule within the left lobe of the thyroid gland. Lung apices clear. No acute fracture. IMPRESSION: Patent head and neck CTA. This document has been electronically signed by: Ingrid Spear MD on 03/17/2025 13:39:16
--- NOTE | ~2025-03-17 | CT_ITS ---
CLINICAL HISTORY: Stroke Protocol CT head without contrast Comparison: None provided Findings: No intra-axial mass, midline shift, hydrocephalus, or acute hemorrhage. Involutional change of brain parenchyma, compatible with age. [id number] white matter disease. Mucosal thickening within the left maxillary sinus. The orbits are within normal limits. There is no acute fracture. IMPRESSION: No acute abnormality of the brain. This document has been electronically signed by: Ingrid Spear MD on 03/17/2025 13:21:43
--- NOTE | ~2025-03-17 | MR_ITS ---
CLINICAL HISTORY: right sided parasthesias and weakness MR Brain without gadolinium Comparison: CT/REG/SR - CT HEAD FOR STROKE - 03/17/25 13:05 EDT Findings: No restricted diffusion. No intra-axial mass or hemorrhage. Mild white matter disease. No midline shift. No hydrocephalus. Vascular flow voids are intact. Orbital contents are unremarkable. Mucosal thickening and fluid within the left maxillary sinus. No focal bone lesion. IMPRESSION: No acute abnormality of the brain. This document has been electronically signed by: Ingrid Spear MD on 03/18/2025 09:43:16
--- NOTE | 2025-03-17 13:04 | ECG_ITS ---
Test Reason : QUESTIONS STROKE Blood Pressure : */* mmHG Vent. Rate : 85 BPM Atrial Rate : 85 BPM P-R Int : 178 ms QRS Dur : 86 ms QT Int : 380 ms P-R-T Axes : 74 120 80 degrees QTcB Int : 452 ms Normal sinus rhythm Right axis deviation Possible Right ventricular hypertrophy Nonspecific ST abnormality Abnormal ECG When compared with ECG of 17-Sep-2023 19:08, No significant change was found Referred By: Fox Singh Electronically Signed By: DERIC SULTANA MD
--- NOTE | 2025-03-17 13:05 | ED.NEUROSD ---
HPI - Neuro Symptoms/Deficit General Chief Complaint: Stroke Stated Complaint: STROKE ALERT, RT SIDE WEAKNESS,LKW 20-30 MINS Time Seen by Provider: 03/17/25 13:03 History of Present Illness ED Provider: Fox Singh MD HPI Narrative: 69-year-old female takes a baby aspirin daily history of hypertension she reports last known well 12:30 today when she was sitting on the couch suddenly noticed what she describes as loss of sensation of the right side of the face and body particularly the right leg and right arm seemed to her spared. No speech changes she is speaking with her 's. Denies vision changes or headache. She did note some sensory abnormalities week or 2 ago where she said she was evaluated in the ED with a an x-ray of the leg and those mostly resolved. No baseline deficits. NIH Stroke Scale/Score (NIHSS) from [email or web address] on 03/17/2025 All calculations should be rechecked by clinician prior to use RESULT SUMMARY: 2 points NIH Stroke Scale Still using NIHSS for all strokes? Don't miss a posterior one without HINTS! INPUTS: 1A: Level of consciousness ?> 0 = Alert; keenly responsive 1B: Ask month and age ?> 0 = Both questions right 1C: 'Blink eyes' & 'squeeze hands' ?> 0 = Performs both tasks 2: Horizontal extraocular movements ?> 0 = Normal 3: Visual cruz ?> 0 = No visual loss 4: Facial palsy ?> 0 = Normal symmetry 5A: Left arm motor drift ?> 0 = No drift for 10 seconds 5B: Right arm motor drift ?> 0 = No drift for 10 seconds 6A: Left leg motor drift ?> 0 = No drift for 5 seconds 6B: Right leg motor drift ?> 1 = Drift, but doesn't hit bed 7: Limb Ataxia ?> 0 = No ataxia 8: Sensation ?> 1 = Mild-moderate loss: can sense being touched 9: Language/aphasia ?> 0 = Normal; no aphasia 10: Dysarthria ?> 0 = Normal 11: Extinction/inattention ?> 0 = No abnormality Related Data Home Medications ?Medication ?Instructions ?Recorded ?Confirmed alendronate 70 mg tablet (Fosamax) 70 mg PO FRIEND 03/17/25 03/17/25 aspirin 650 mg tablet,delayed 650 mg PO DAILY PRN Pain 03/17/25 03/17/25 release bupropion HCl 100 mg tablet 100 mg PO DAILY@1400 03/17/25 03/17/25 bupropion HCl 100 mg tablet 200 mg PO DAILY 03/17/25 03/17/25 Previous Rx's ?Medication ?Instructions ?Recorded simvastatin 5 mg tablet 5 mg PO BEDTIME 30 days #90 tabs 08/24/24 clonidine HCl 0.2 mg tablet 0.2 mg PO TID PRN anxiety 90 days 01/08/25 #270 tabs quetiapine 100 mg tablet (Seroquel) 200 mg (2 x 100 mg) PO BEDTIME 90 02/12/25 days #180 tabs ipratropium 20 mcg-albuterol 100 1 puff inhalation QID #4 grams 02/21/25 mcg/actuation mist for inhalation (Combivent Respimat) baclofen 10 mg tablet 10 mg PO BID PRN muscle spasm #180 03/07/25 caps Allergies Allergy/AdvReac Type Severity Reaction Status Date / Time No Known Allergies (No Known Allergy Verified 03/17/25 13:23 Allergies*) [facility] Past Medical History Medical History Tick bite Right knee pain Right leg numbness Mononeuritis lower 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 Personal history of nicotine dependence Annual physical exam Herniation of intervertebral disc between L5 and S1 Trigeminal neuralgia Hemiplegic migraine Hypercholesterolemia Anxiety and depression Alcohol abuse History of hepatitis C Surgical History History of hemorrhoidectomy Family History Family History Father Medical history unknown Mother Chronic mental illness Social History Social History Household Members: Spouse Housing: Other Housing Other:: multifamily house Do you presently have visiting nurse or other home services: No Alcohol intake: former Patient Tobacco Use Status: Current everyday Tobacco user Tobacco use type: Cigarette Cigarette Packs Per Day: 0.25 Cigarettes Per Day: 4 Years Smoked: 42 (onset 22) e-Cigarette/Vaping Use: Never Used Second Hand Smoke Exposure: Yes Substance Use Type: Marijuana Advance Directives Date on File: 04/08/20 service: No Current occupational status: retired Cognitive needs: No Hearing needs: No Vision needs: Yes Physical Exam Exam: Exam: Arrival exam 13:05: GENERAL: Well appearing. No apparent distress. Alert. HEAD/NECK: Normal to inspection. Neck supple. No cervical lymphadenopathy. EYES: Normal to inspection. Sclera non-icteric. ENMT: External nose normal. RESPIRATORY: Respiratory effort normal. Lungs clear to auscultation bilaterally. CARDIOVASCULAR: Regular rate. Normal rhythm. No murmur. No rubs. GI: Soft, non-tender, non-distended. No rebound or guarding. No masses palpable. No hepatosplenomegaly. SKIN: No jaundice. NEUROLOGICAL: Alert. PSYCHIATRIC: Alert. Appearance appropriate for situation. Attitude cooperative. OTHER: Comprehensive Neuro exam: Face symmetric, tongue midline, strong symmetric eye closure, pupils symmetric and reactive to light, intact sensation to the face throughout, intact strong face deviation and shoulder shrug. Sensation intact to light touch throughout 5 out of 5 strength in bilateral upper extremities, 5 and 5 strength in lower extremities Vital Signs: Vital Signs: Last Vital Signs Temp 97.0 F 03/18/25 12:00 Pulse 68 03/18/25 12:00 Resp 20 03/18/25 12:00 BP 134/60 03/18/25 12:00 Pulse Ox 95 03/18/25 12:00 O2 Del Method Room Air 03/18/25 12:00 BMI result Body Mass Index 29.4 Course Reevaluation(s) Reevaluation #1: Patient in the CT scanner at 13:07 1:20 PM 03[facility]17[facility]2025 [facility] [place] CT noncontrast reviewed by myself. No ICH. The patient has non disabling deficits NIH stroke scale calculated on arrival as 2 see above. No tPA indicated. Medications Administered Discontinued Medications Generic Name Dose Route Start Last Admin Trade Name Freq PRN Reason Stop Dose Admin Aspirin 81 mg 03/18/25 09:00 03/18/25 08:33 Aspirin Enteric Coated 81 Mg Tablet. PO 81 mg DAILY ARELIS Administration Atorvastatin Calcium 80 mg 03/17/25 21:00 03/17/25 20:25 Atorvastatin Calcium 80 Mg Tablet PO 80 mg BEDTIME ARELIS Administration Bupropion HCl 200 mg 03/18/25 09:00 03/18/25 08:34 Bupropion Hcl 100 Mg Tablet PO 200 mg DAILY ARELIS Administration Enoxaparin Sodium 40 mg 03/18/25 09:30 03/18/25 08:35 Enoxaparin Sodium 40 Mg/0.4 Ml Syringe SUBCUT 40 mg Q24H ARELIS Administration Iohexol 100 ml 03/17/25 13:13 03/17/25 13:14 Iohexol 350 Mg/Ml 100 Ml Infus..Btl IV 03/17/25 13:14 70 ml ONCE ONE Administration Quetiapine Fumarate 200 mg 03/17/25 21:00 03/17/25 20:25 Quetiapine Fumarate 200 Mg Tablet PO 200 mg BEDTIME ARELIS Administration Sodium Chloride 3 ml 03/17/25 16:00 03/18/25 08:33 0.9 % Sodium Chloride Flush 3 Ml Syringe IVFLUSH 3 ml QSHIFT ARELIS Administration Medical Decision Making Medical Decision Making [facility] Narrative: 69 F WITH LKW 1230, R sided sensory changes. To me denied weakness. R facial sensory changes as well. No headache. Sinus on EKG No progression of Sx in ED. Stroke activation with NCCT and CTA. Neg per my discussion with radiology team. NIHSS 2 for sensory and R LE weak. Later in ED course pt reminded her of similar hemiplegic migraine years ago. Still no [place]. Defer anticoagulation or further mgmt to inpatient team. Pt will need MR/non emergency neuro consult. Speech clear. Airway intact. No ICH Consult Healthcare Provider Management of the patient was discussed with: Hospitalist Lab Data [facility] Lab Attestation statement: I reviewed the patient's lab results. 03/18/25 06:54 03/18/25 06:54 Labs: Lab Results 03/17/25 03/17/25 03/17/25 Range/Units 13:04 13:07 13:31 WBC 9.0 (4.8-10.8) X10*3/uL RBC 4.55 (4.20-5.50) X10*6/uL Hgb 13.6 (12.0-16.0) g/dl Hct 39.2 (37.0-47.0) % MCV 86.2 (80.0-98.0) fL MCH 29.9 (27.0-33.0) pg MCHC 34.7 (31.0-35.0) g/dl RDW 12.4 (11.0-16.0) % Plt Count 311 (160-400) X10*3/uL MPV 9.0 L (9.4-12.3) fL Immature Gran % (Auto) 0.4 (0.0-0.4) % Neut % (Auto) 48.3 (45-73) % Lymph % (Auto) 39.2 (20-40) % [place] % (Auto) 7.7 (2-11) % Eos % (Auto) 3.5 (0-4) % Baso % (Auto) 0.9 (0-2) % Lymph # (Auto) 3.5 (1.2-4.9) X10*3/uL [place] # (Auto) 0.7 (0.1-1.2) X10*3/uL Eos # (Auto) 0.3 (0.0-0.4) X10*3/uL Baso # (Auto) 0.1 (0.0-0.2) X10*3/uL Abs Immat Gran (auto) 0.04 H (0.00-0.03) X10*3/uL Absolute Neuts (auto) 4.3 (2.0-8.3) x10*3/uL Absolute Nucleated RBC 0.000 (0.0-0.012) X10*3/uL Nucleated RBC % (auto) 0.0 (0.0-0.2) /100WBC PT 11.4 (10.9-12.4) SEC Whole Blood PT 12.2 (11.1-13.5) sec INR 1.0 (0.9-1.1) Whole Blood INR 1.0 (0.9-1.1) APTT 39.0 H (26.7-34.1) SEC Sodium 138 (135-145) mmol/L Potassium 4.0 (3.3-5.1) mmol/L Chloride 102 (96-108) mmol/L Carbon Dioxide 26 (22-29) mmol/L Anion Gap 14 (12-20) BUN 10 (9-16) mg/dL Creatinine 0.91 (0.5-1.4) mg/dL Estim Creat Clear Calc 59.6 Estimated GFR > 60 POC Glucose 130 H (60-115) mg/dL Random Glucose 82 (60-115) mg/dL Calcium 9.2 D (8.4-10.2) mg/dL Troponin I High Sens < 2.7 (<3.5-17.0) ng/L Triglycerides 134 (<150) mg/dL Cholesterol 213 H (<200) mg/dL LDL Cholesterol, Calc 126 H (<100) mg/dL HDL Cholesterol 61 (>40) mg/dL Radiology Impression Discussion of test interpretation with radiology: I have reviewed the radiologist's reading. Critical Care Time Critical Care Time Critical Care Time: Yes Total Critical Care Time: 30 Attestation: Stroke activation requiring my presence ED Critical Care: Authorized and Performed by: Fox Singh MD Total critical care time: Approximately 30 min Due to a high probability of clinically significant, life threatening deterioration, the patient required my highest level of preparedness to intervene emergently and I personally spent this critical care time directly and personally managing the patient. This critical care time included obtaining a history; examining the patient; pulse oximetry; ordering and review of studies; arranging urgent treatment with development of a management plan; evaluation of patient's response to treatment; frequent reassessment; and, discussions with other providers. This critical care time was performed to assess and manage the high probability of imminent, life-threatening deterioration that could result in multi-organ failure. It was exclusive of separately billable procedures and treating other patients and teaching time. Discharge Plan Discharge Clinical Impression: Paresthesias Patient Disposition: Admitted As Inpatient Interventions: Admission Worksheet (ED) Last Done: 03/18/25 07:04 Discharge Date/Time: 03/18/25 19:14
[2025-03-17 13:13] LABS: Prothrombin Time Whole Bld POC 12.2 sec (11.1-13.5); ~PT, ~INR - Anti Coag Clinic 1.0 (0.9-1.1)
[2025-03-17] MEDS: iohexoL 350 MG/ML 100 ML INFUS..BTL IV (13:14)
[2025-03-17 13:15] LABS: Glucose, Whole Blood 130 mg/dL (60-115)
[2025-03-17 13:35] LABS: MANUAL DIFF FLAG NO
[2025-03-17 13:37] LABS: Hematocrit 39.2 % (37.0-47.0); Hemoglobin 13.6 g/dl (12.0-16.0); Imm Gran Abs Auto 0.04 X10*3/uL (0.00-0.03); Imm Gran Pct Auto 0.4 % (0.0-0.4); Lymphocytes Absolute Auto 3.5 X10*3/uL (1.2-4.9); Mean Corpuscular HGB Conc 34.7 g/dl (31.0-35.0); Mean Corpuscular Hemoglobin 29.9 pg (27.0-33.0); Mean Corpuscular Volume 86.2 fL (80.0-98.0); NRBC Abs Auto 0.000 X10*3/uL (0.0-0.012); NRBC Pct Auto 0.0 /100WBC (0.0-0.2); Platelet Count 311 X10*3/uL (160-400); Red Blood Count 4.55 X10*6/uL (4.20-5.50); White Blood Count 9.0 X10*3/uL (4.8-10.8)
[2025-03-17 13:42] LABS: INTERNATIONAL NORM RATIO 1.0 (0.9-1.1); Prothrombin Time 11.4 SEC (10.9-12.4)
[2025-03-17 13:45] LABS: Partial Thromboplastin Time 39.0 SEC (26.7-34.1)
[2025-03-17 13:46] LABS: Stroke Lab Use COMPLETE
[2025-03-17 13:52] LABS: Anion Gap 14 (12-20); Blood Urea Nitrogen 10 mg/dL (9-16); Calcium 9.2 mg/dL (8.4-10.2); Carbon Dioxide 26 mmol/L (22-29); Chloride 102 mmol/L (96-108); Cholesterol 213 mg/dL (<200); Creatinine Clr Calc Pharmacy 59.6; Estimated Glomerular Filt Rate > 60; HDL Cholesterol 61 mg/dL (>40); Potassium 4.0 mmol/L (3.3-5.1); Sodium 138 mmol/L (135-145); Triglycerides 134 mg/dL (<150)
[2025-03-17 13:59] LABS: Troponin-I High Sensitivity < 2.7 ng/L (<3.5-17.0)
--- NOTE | 2025-03-17 14:59 | PM.IMHP ---
History of Present Illness Date of Service: 03/17/25 Chief Complaint: right sided weakness 69F PMH mood disorder, HLD, COPD, osteoporosis, hcv s/p treatment, presented with right sided weakness and numbness. Patient states symptoms began at about 12:30 on day of presentation. With sudden-onset entire right side including face started with paresthesias and numbness then started to notice weakness as well. Weakness has since abated but is still innominate and feeling paresthesias. Witnessed this did not notice any change in speech but patient feels she had some expressive aphasia. In ED CT head was negative, CTA head and neck patent. 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 Personal history of nicotine dependence Annual physical exam Herniation of intervertebral disc between L5 and S1 Trigeminal neuralgia Hemiplegic migraine Hypercholesterolemia Anxiety and depression Alcohol abuse History of hepatitis C Family History Father Medical history unknown Mother Chronic mental illness Surgical History History of hemorrhoidectomy Social History Housing: House Alcohol intake: former Patient Tobacco Use Status: Current everyday Tobacco user Tobacco use type: Cigarette Cigarette Packs Per Day: 0.25 Cigarettes Per Day: 3 Years Smoked: 42 (onset 22) e-Cigarette/Vaping Use: Never Used Second Hand Smoke Exposure: Yes Substance Use Type: Marijuana Advance Directives: Yes Advance Directives on File: Yes Advance Directives Date on File: 04/08/20 Do you have a plan to hurt others: No Plan service: No Current occupational status: retired Cognitive needs: No Hearing needs: No Vision needs: Yes Meds Allergies Allergy/AdvReac Type Severity Reaction Status Date / Time No Known Allergies (No Known Allergy Verified 03/17/25 13:23 Allergies*) Active Medications: Current Medications Acetaminophen (Acetaminophen 325 Mg Tablet) 650 mg PO Q6H PRN PRN Reason: Pain, Mild 1-3,fever,headache Aspirin (Aspirin Enteric Coated 81 Mg Tablet.) 81 mg PO DAILY ARELIS Atorvastatin Calcium (Atorvastatin Calcium 80 Mg Tablet) 80 mg PO BEDTIME ARELIS Calcium Carbonate (Calcium Carbonate 750 Mg Tab.Chew) 750 mg PO Q4H PRN PRN Reason: Heartburn Enoxaparin Sodium (Enoxaparin Sodium 40 Mg/0.4 Ml Syringe) 40 mg SUBCUT Q24H ARELIS Magnesium Hydroxide (Milk Of Magnesia 30 Ml Oral.Susp) 30 ml PO DAILY PRN PRN Reason: Constipation Melatonin (Melatonin 3 Mg Tablet) 6 mg PO BEDTIME PRN PRN Reason: Insomnia Sodium Chloride (0.9 % Sodium Chloride Flush 3 Ml Syringe) 3 ml IVFLUSH QSHIFT ARELIS Physical Exam Vital Signs and Narrative: Vital Signs: Last Vital Signs Temp 97.3 F 03/17/25 13:26 Pulse 74 03/17/25 13:26 Resp 16 03/17/25 13:26 BP 173/62 H 03/17/25 13:26 Pulse Ox 99 03/17/25 13:26 O2 Del Method Room Air 03/17/25 13:26 BMI result Body Mass Index 29.4 General: AO X 3, no acute distress Resp: CTA bilateral, no accessory muscles used CVS: S1,S2,RRR GI: soft, non tender, non distended Neuro: motor grossly intact, alert, right sided sensory loss Psych: appropriate affect, appropriate insight Results Labs 03/17/25 13:31 03/17/25 13:31 Labs: Laboratory Results - last 24 hr 03/17/25 03/17/25 03/17/25 13:04 13:07 13:31 MCV 86.2 MCH 29.9 MCHC 34.7 RDW 12.4 Plt Count 311 MPV 9.0 L Immature Gran % (Auto) 0.4 Neut % (Auto) 48.3 Lymph % (Auto) 39.2 Phillips % (Auto) 7.7 Eos % (Auto) 3.5 Baso % (Auto) 0.9 Lymph # (Auto) 3.5 Phillips # (Auto) 0.7 Eos # (Auto) 0.3 Baso # (Auto) 0.1 Abs Immat Gran (auto) 0.04 H Absolute Neuts (auto) 4.3 Absolute Nucleated RBC 0.000 Nucleated RBC % (auto) 0.0 PT 11.4 Whole Blood PT 12.2 INR 1.0 Whole Blood INR 1.0 APTT 39.0 H Anion Gap 14 Estim Creat Clear Calc 59.6 Estimated GFR > 60 POC Glucose 130 H Random Glucose 82 Calcium 9.2 D Triglycerides 134 Cholesterol 213 H LDL Cholesterol, Calc 126 H HDL Cholesterol 61 Assessment and Plan (1) Impaired glucose tolerance: Status: Acute Plan 69F PMH mood disorder, HLD, COPD, osteoporosis, hcv s/p treatment, presented with right sided weakness and numbness right sided parasthesia and weakness rule out cva tele, mri, echo, pt, ot, asa, statin permissive hypertension mood disorder seroquel at night copd smoking cessation dvt prophylaxis - lovenox full code ongoing weakness, at risk for further neurological decline excpected to require atleast 2 midnights inpatient Quality Stroke Does the patient have a stroke diagnosis?: Yes Reason for No Anti-thrombotic by Day Two: N/A - Med Ordered VTE Prior VTE?: No VTE Risk Level:: Medical - moderate - high VTE Device Contraindication: Treatment Not Indicated VTE Drug Contraindication: N/A - Med Ordered
[2025-03-17] MEDS: 0.9 % Sodium Chloride Flush 3 ML SYRINGE IVFLUSH (15:38)
--- NOTE | 2025-03-17 16:28 | PHA.MEDREC ---
Pharmacy Consult ? Medication Reconciliation Pharmacy has completed the medication reconciliation. Patient knew all medications
[2025-03-18] MEDS: 0.9 % Sodium Chloride Flush 3 ML SYRINGE IVFLUSH ×2 (01:00→08:33)
[2025-03-18 02:09] VITALS: BP 117/59; PULSE 55; RESP 15; O2SAT 98
[2025-03-18 05:49] VITALS: BP 133/66; PULSE 64; RESP 12; TEMP 36.7; O2SAT 98
[2025-03-18 07:16] LABS: Hematocrit 37.8 % (37.0-47.0); Hemoglobin 13.0 g/dl (12.0-16.0); Mean Corpuscular HGB Conc 34.4 g/dl (31.0-35.0); Mean Corpuscular Hemoglobin 29.5 pg (27.0-33.0); Mean Corpuscular Volume 85.7 fL (80.0-98.0); NRBC Abs Auto 0.000 X10*3/uL (0.0-0.012); NRBC Pct Auto 0.0 /100WBC (0.0-0.2); Platelet Count 300 X10*3/uL (160-400); Red Blood Count 4.41 X10*6/uL (4.20-5.50); White Blood Count 9.5 X10*3/uL (4.8-10.8)
[2025-03-18 07:32] LABS: Anion Gap 12 (12-20); Blood Urea Nitrogen 10 mg/dL (9-16); Calcium 9.3 mg/dL (8.4-10.2); Carbon Dioxide 24 mmol/L (22-29); Chloride 107 mmol/L (96-108); Creatinine Clr Calc Pharmacy 63.8; Estimated Glomerular Filt Rate > 60; Potassium 3.7 mmol/L (3.3-5.1); Sodium 139 mmol/L (135-145)
[2025-03-18 08:18] VITALS: BMI 29.9
[2025-03-18 08:31] VITALS: BP 131/66; PULSE 68; RESP 20; TEMP 36.7; O2SAT 98
[2025-03-18] MEDS: Aspirin Enteric Coated 81 MG TABLET.DR PO (08:33)
--- NOTE | 2025-03-18 08:52 | P.PNIM_ITS ---
Subjective Subjective Date of Service: 03/18/25 Interval History: imrpoving but not resolved right sided parasthesias Physical Exam 2 Exam: Exam: General: AO X 3, no acute distress Resp: CTA bilateral, no accessory muscles used CVS: S1,S2,RRR GI: soft, non tender, non distended Neuro: motor grossly intact, alert, right sided sensory loss Psych: appropriate affect, appropriate insight Vital Signs: Vital Signs: Last Vital Signs Temp 98.0 F 03/18/25 08:31 Pulse 68 03/18/25 08:31 Resp 20 03/18/25 08:31 BP 131/66 03/18/25 08:31 Pulse Ox 98 03/18/25 08:31 O2 Del Method Room Air 03/18/25 08:31 BMI result Body Mass Index 29.9 Objective Data Active Medications Acetaminophen (Acetaminophen 325 Mg Tablet) 650 mg PO Q6H PRN PRN Reason: Pain, Mild 1-3,fever,headache Aspirin (Aspirin Enteric Coated 81 Mg Tablet.) 81 mg PO DAILY [facility] Last Admin: 03/18/25 08:33 Dose: 81 mg Documented By: KAYLEIGH Atorvastatin Calcium (Atorvastatin Calcium 80 Mg Tablet) 80 mg PO BEDTIME [facility] Last Admin: 03/17/25 20:25 Dose: 80 mg Documented By: HUMA Baclofen (Baclofen 10 Mg Tablet) 10 mg PO BID PRN PRN Reason: Muscle Spasm Bupropion HCl (Bupropion Hcl 100 Mg Tablet) 100 mg PO DAILY@1400 [facility] Bupropion HCl (Bupropion Hcl 100 Mg Tablet) 200 mg PO DAILY [facility] Last Admin: 03/18/25 08:34 Dose: 200 mg Documented By: KAYLEIGH Calcium Carbonate (Calcium Carbonate 750 Mg Tab.Chew) 750 mg PO Q4H PRN PRN Reason: Heartburn Clonidine HCl (Clonidine Hcl 0.2 Mg Tablet) 0.2 mg PO TID PRN; Protocol PRN Reason: Anxiety Enoxaparin Sodium (Enoxaparin Sodium 40 Mg/0.4 Ml Syringe) 40 mg SUBCUT Q24H [facility] Last Admin: 03/18/25 08:35 Dose: 40 mg Documented By: KAYLEIGH Magnesium Hydroxide (Milk Of Magnesia 30 Ml Oral.Susp) 30 ml PO DAILY PRN PRN Reason: Constipation Melatonin (Melatonin 3 Mg Tablet) 6 mg PO BEDTIME PRN PRN Reason: Insomnia Quetiapine Fumarate (Quetiapine Fumarate 200 Mg Tablet) 200 mg PO BEDTIME [facility] Last Admin: 03/17/25 20:25 Dose: 200 mg Documented By: HUMA Sodium Chloride (0.9 % Sodium Chloride Flush 3 Ml Syringe) 3 ml IVFLUSH QSHIFT [facility] Last Admin: 03/18/25 08:33 Dose: 3 ml Documented By: KAYLEIGH Labs 03/18/25 06:54 03/18/25 06:54 Labs: Laboratory Results - last 24 hr 03/17/25 03/17/25 03/17/25 13:04 13:07 13:31 MCV 86.2 MCH 29.9 MCHC 34.7 RDW 12.4 Plt Count 311 MPV 9.0 L Immature Gran % (Auto) 0.4 Neut % (Auto) 48.3 Lymph % (Auto) 39.2 [place] % (Auto) 7.7 Eos % (Auto) 3.5 Baso % (Auto) 0.9 Lymph # (Auto) 3.5 [place] # (Auto) 0.7 Eos # (Auto) 0.3 Baso # (Auto) 0.1 Abs Immat Gran (auto) 0.04 H Absolute Neuts (auto) 4.3 Absolute Nucleated RBC 0.000 Nucleated RBC % (auto) 0.0 PT 11.4 Whole Blood PT 12.2 INR 1.0 Whole Blood INR 1.0 APTT 39.0 H Anion Gap 14 Estim Creat Clear Calc 59.6 Estimated GFR > 60 POC Glucose 130 H Random Glucose 82 Calcium 9.2 D Triglycerides 134 Cholesterol 213 H LDL Cholesterol, Calc 126 H HDL Cholesterol 61 03/18/25 06:54 MCV 85.7 MCH 29.5 MCHC 34.4 RDW 12.5 Plt Count 300 MPV 9.0 L Immature Gran % (Auto) Neut % (Auto) Lymph % (Auto) [place] % (Auto) Eos % (Auto) Baso % (Auto) Lymph # (Auto) [place] # (Auto) Eos # (Auto) Baso # (Auto) Abs Immat Gran (auto) Absolute Neuts (auto) Absolute Nucleated RBC 0.000 Nucleated RBC % (auto) 0.0 PT Whole Blood PT INR Whole Blood INR APTT Anion Gap 12 Estim Creat Clear Calc 63.8 Estimated GFR > 60 POC Glucose Random Glucose 115 Calcium 9.3 Triglycerides Cholesterol LDL Cholesterol, Calc HDL Cholesterol Assessment and Plan (1) Generalized anxiety disorder: Status: Acute Plan 69F PMH mood disorder, HLD, COPD, osteoporosis, hcv s/p treatment, presented with right sided weakness and numbness right sided parasthesia and weakness rule out cva tele, mri, echo, pt, ot, asa, statin permissive hypertension mood disorder seroquel at night copd smoking cessation dvt prophylaxis - lovenox full code reason for continued hospitalization:mri, neuro eval Quality Stroke Does the patient have a stroke diagnosis?: Yes Reason for No Anti-thrombotic by Day Two: N/A - Med Ordered VTE Prior VTE?: No VTE Risk Level:: Medical - moderate - high VTE Device Contraindication: Treatment Not Indicated VTE Drug Contraindication: N/A - Med Ordered
--- NOTE | 2025-03-18 11:53 | PM.DS ---
DS: Providers Provider Date of Service: 03/18/25 Date of admission: 03/17/25 14:45 Date of discharge: 03/18/25 Primary care physician: Steph Velasquez MD Consults: 03/17/25 14:46 Consult to Neurology Routine Consulting Provider: Srinath Rodriguez Reason for consultation: rle weakness DS: Diagnosis Discharge Diagnosis (1) Generalized anxiety disorder: Status: Acute DS: Summary Hospital Course Hospital Course: from initial hpi: 69F PMH mood disorder, HLD, COPD, osteoporosis, hcv s/p treatment, presented with right sided weakness and numbness. Patient states symptoms began at about 12:30 on day of presentation. With sudden-onset entire right side including face started with paresthesias and numbness then started to notice weakness as well. Weakness has since abated but is still innominate and feeling paresthesias. Witnessed this did not notice any change in speech but patient feels she had some expressive aphasia. In ED CT head was negative, CTA head and neck patent. hospital course: Patient was admitted for right-sided paresthesias and weakness to rule out CVA. MRI was negative for CVA most likely this is complicated migraine. Should continue on baby aspirin daily. For mood disorder was continued on Seroquel at night. For COPD smoking cessation is recommended. Patient is feeling better and will be discharged home. Time Attestation Discharge Coordination Time (in mins): 33 Quality: Safe Use of Opioids Does Pt have an Active Cancer Diagnosis on the Problem List?: No Quality: Stroke Does the patient have a stroke diagnosis?: No Physical Exam Exam: Exam: General: AO X 3, no acute distress Resp: CTA bilateral, no accessory muscles used CVS: S1,S2,RRR GI: soft, non tender, non distended Neuro: motor grossly intact, alert Psych: appropriate affect, appropriate insight Vital Signs: Vital Signs: Last Vital Signs Temp 98.0 F 03/18/25 08:31 Pulse 68 03/18/25 08:31 Resp 20 03/18/25 08:31 BP 131/66 03/18/25 08:31 Pulse Ox 98 03/18/25 08:31 O2 Del Method Room Air 03/18/25 08:31 BMI result Body Mass Index 29.9 DS: Data Data Completed and Pending Labs on day of discharge: Laboratory Results - last 24 hr 03/17/25 03/17/25 03/17/25 13:04 13:07 13:31 WBC 9.0 RBC 4.55 Hgb 13.6 Hct 39.2 MCV 86.2 MCH 29.9 MCHC 34.7 RDW 12.4 Plt Count 311 MPV 9.0 L Immature Gran % (Auto) 0.4 Neut % (Auto) 48.3 Lymph % (Auto) 39.2 [place] % (Auto) 7.7 Eos % (Auto) 3.5 Baso % (Auto) 0.9 Lymph # (Auto) 3.5 [place] # (Auto) 0.7 Eos # (Auto) 0.3 Baso # (Auto) 0.1 Abs Immat Gran (auto) 0.04 H Absolute Neuts (auto) 4.3 Absolute Nucleated RBC 0.000 Nucleated RBC % (auto) 0.0 PT 11.4 Whole Blood PT 12.2 INR 1.0 Whole Blood INR 1.0 APTT 39.0 H Sodium 138 Potassium 4.0 Chloride 102 Carbon Dioxide 26 Anion Gap 14 BUN 10 Creatinine 0.91 Estim Creat Clear Calc 59.6 Estimated GFR > 60 POC Glucose 130 H Random Glucose 82 Calcium 9.2 D Troponin I High Sens < 2.7 Triglycerides 134 Cholesterol 213 H LDL Cholesterol, Calc 126 H HDL Cholesterol 61 03/18/25 06:54 WBC 9.5 RBC 4.41 Hgb 13.0 Hct 37.8 MCV 85.7 MCH 29.5 MCHC 34.4 RDW 12.5 Plt Count 300 MPV 9.0 L Immature Gran % (Auto) Neut % (Auto) Lymph % (Auto) [place] % (Auto) Eos % (Auto) Baso % (Auto) Lymph # (Auto) [place] # (Auto) Eos # (Auto) Baso # (Auto) Abs Immat Gran (auto) Absolute Neuts (auto) Absolute Nucleated RBC 0.000 Nucleated RBC % (auto) 0.0 PT Whole Blood PT INR Whole Blood INR APTT Sodium 139 Potassium 3.7 Chloride 107 Carbon Dioxide 24 Anion Gap 12 BUN 10 Creatinine 0.85 Estim Creat Clear Calc 63.8 Estimated GFR > 60 POC Glucose Random Glucose 115 Calcium 9.3 Troponin I High Sens Triglycerides Cholesterol LDL Cholesterol, Calc HDL Cholesterol Discharge Plan Discharge Anticipated Discharge Date/Time: 03/18/25 11:52 Patient Disposition: Home, Self-Care Discharge Diagnosis: migraine Referrals: Steph Velasquez MD [Primary Care Provider, Internal Medicine] - 1 Week Discharge Medications: Continued simvastatin 5 mg tablet 5 mg PO BEDTIME 30 Days Qty: 90 3RF clonidine HCl 0.2 mg tablet 0.2 mg PO TID PRN (Reason: anxiety) 90 Days Qty: 270 0RF quetiapine [Seroquel] 100 mg tablet 200 mg PO BEDTIME 90 Days Qty: 180 1RF baclofen 10 mg tablet 10 mg PO BID PRN (Reason: muscle spasm) Qty: 180 0RF bupropion HCl 100 mg tablet 200 mg PO DAILY alendronate [Fosamax] 70 mg tablet 70 mg PO FRIEND bupropion HCl 100 mg tablet 100 mg PO DAILY@1400 aspirin 650 mg Tablet,Delayed Release (Dr/Ec) 650 mg PO DAILY PRN (Reason: Pain) Combivent Respimat 20-100 mcg/actuation mist 1 puff inhalation QID Qty: 4 1RF Rx Instructions: space evenly during waking hours Discharge Orders: Discharge Order (Routine); Ordered 03/18/25 Ordered By: Pranav Alicea Diet: Advance to usual diet Activity on Discharge: As tolerated Stand Alone Forms: Patient Portal Discharge page Print Language: Lithuanian Care Plan Goals: recovery Health Concerns: migraine Plan of Treatment: continue asa Assessment: see above
[2025-03-18 12:00] VITALS: BP 134/60; PULSE 68; RESP 20; TEMP 36.1; O2SAT 95
--- NOTE | 2025-03-18 12:04 | MHC.CM.PN ---
PT REPORTS SHE LIVES WITH HER AND IS INDEPENDENT WITH CARE SHE HAS NO DME AND NO SERVICES HCP COMPLETED TODAY NAMING HER THE AGENT PCP: GRIFFIN LECHUGA IMM DELIVERED PT CLEARED TO DC HOME TODAY WITH NO SERVICES FAMILY TO TRANSPORT
== END 2025-03-18 13:15 | disposition home or self-care (01) | DRG 103 ==
LOC: HO.ED 14:00 → HO.EDOVER 14:54 → HO.IMC 03-18 07:00
PROVIDERS: Admitting Provider Internal Medicine; Emergency Provider Emergency Medicine; PCP Internal Medicine; Visit Provider Internal Medicine
DX: G43.109 Migraine with aura, not intractable, without status migrainosus (principal); F41.1 Generalized anxiety disorder; J44.9 Chronic obstructive pulmonary disease, unspecified; F17.210 Nicotine dependence, cigarettes, uncomplicated; Z71.6 Tobacco abuse counseling; Z79.899 Other long term (current) drug therapy; Z86.19 Personal history of other infectious and parasitic diseases
CPT/HCPCS: 36415; 70450; 70496; 70498; 70551; 80048; 80061; 82947; 84484; 85025; 85027; 85610; 85730; 93005; 99285; J1650; Q9967

== ENCOUNTER → 2025-03-17 13:04 | Outpatient (BNV) | payer MEDICARE, MEDICAID, SELFPAY | PROVIDERS: Admitting Provider Internal Medicine; Emergency Provider Emergency Medicine; PCP Internal Medicine; Visit Provider Internal Medicine Cardiovascular Disease | DX: R94.31 Abnormal electrocardiogram [ECG] [EKG] (principal); Z13.6 Encounter for screening for cardiovascular disorders | CPT/HCPCS: 93010 ==

== ENCOUNTER → 2025-03-17 13:04 | Outpatient (BNV) | payer MEDICARE, MEDICAID, SELFPAY | PROVIDERS: Emergency Provider Emergency Medicine; PCP Internal Medicine; Visit Provider Radiology Diagnostic Radiology | DX: R29.810 Facial weakness (principal) | CPT/HCPCS: 70450; 70496; 70498 ==

== ENCOUNTER 2025-03-17 14:45 | Outpatient (BNV) | payer MEDICARE, MEDICAID, SELFPAY | END 2025-03-18 08:39 | PROVIDERS: Admitting Provider Internal Medicine; Emergency Provider Emergency Medicine; PCP Internal Medicine; Visit Provider Radiology Diagnostic Radiology | DX: R20.2 Paresthesia of skin (principal) | CPT/HCPCS: 70551 ==

== ENCOUNTER → 2025-03-17 14:45 | Outpatient (BNV) | payer MEDICARE, MEDICAID, SELFPAY | PROVIDERS: Admitting Provider Internal Medicine; Emergency Provider Emergency Medicine; PCP Internal Medicine; Visit Provider Internal Medicine | DX: F41.1 Generalized anxiety disorder (principal) | CPT/HCPCS: 99223; 99239; 99499 ==